=== PATIENT | male | born 1935 | race Caucasian/White ===

== ENCOUNTER 2018-07-12 12:14 | Inpatient (IN) | payer OTHER, BC ==
[2018-07-12 12:24] VITALS: BMI 23.6
--- NOTE | 2018-07-12 15:16 | PDOC ---
History of Present Illness - History of Present Illness Initial Comments: 07/12/18 17:55 The patient is a 82 year old male with a significant past medical history of prostate CA s/p suprapubic catheter and dual chamber artificial urinary sphincter, HTN, DM who presents today complaining of 2 days of decreased UOP in his leg bag and irritation to the scrotum. Patient states he normally can fill up his leg bag a few times a day but recently there hasnt been as much urine and states it seems to be leaking out of his penis causing irritation and redness to his scrotum. He reports having pain to his genitals mostly when sitting or standing. The patient notes to have had chills yesterday but denies fever. Suprapubic catheter was placed by Dr. Guidry at . Patient tried to contact Dr. Guidry today but he was told he is away. HE called his PMD Dr. Christine who advised that he go to the ER. Denies abdominal pain or pressure, nausea, vomiting, diarrhea, cough, SOB, CP, back pain, focal weakness/numbness. Call placed to the ED at [place] for collateral from ED attending. HE reports that last month patient was diagnosed to have cellulitis of the scrotum and a scrotal abscess which was I&Dd by Dr. Guidry on 05/27. Patient had follow up CT scan on 06/03 which only showed cellulitis and no gas or deep collections. He was sent to rehab for IV Vancomycin/Ceftriaxone via PICC line. Urologist: Dr. Guidry ([phone]) PCP: Dr. Marks Patient's Son #: Bud <Rolf Peterson - Last Filed: 07/12/18 19:03> <Pat Roman - Last Filed: 07/12/18 23:02> <Betsy Robertson - Last Filed: 07/12/18 23:25> - General Chief Complaint: Urinary Catheter Problem Stated Complaint: URINE PROBLEM Time Seen by Provider: 07/12/18 14:48 Past History - Past Medical History COPD: No Diabetes: Yes HTN: Yes - Suicide/Smoking/Psychosocial Hx Smoking History: Never smoked <Rolf Peterson - Last Filed: 07/12/18 19:03> <Pat Roman - Last Filed: 07/12/18 23:02> <Betsy Robertson - Last Filed: 07/12/18 23:25> - Past Medical History Allergies/Adverse Reactions: Allergies Allergy/AdvReac Type Severity Reaction Status Date / Time No Known Allergies Allergy Verified 07/12/18 12:23 Review of Systems - Review of Systems Comments:: 07/12/18 18:00 GENERAL/CONSTITUTIONAL: (+) chills. No fever. No weakness. HEAD, EYES, EARS, NOSE AND THROAT: No change in vision. No ear pain or discharge. No sore throat. GASTROINTESTINAL: No nausea, vomiting, diarrhea or constipation. GENITOURINARY: (+) urinary hesitancy. (+) genital irritation and pain. No dysuria, frequency. CARDIOVASCULAR: No chest pain or shortness of breath. RESPIRATORY: No cough, wheezing, or hemoptysis. MUSCULOSKELETAL: No joint or muscle swelling or pain. No neck or back pain. SKIN: (+) genital irritation. No rash NEUROLOGIC: No headache, vertigo, loss of consciousness, or change in strength/ sensation. ENDOCRINE: No increased thirst. No abnormal weight change. HEMATOLOGIC/LYMPHATIC: No anemia, easy bleeding, or history of blood clots. ALLERGIC/IMMUNOLOGIC: No hives or skin allergy. <Rolf Peterson - Last Filed: 07/12/18 19:03> *Physical Exam - Vital Signs Last Vital Signs Temp Pulse Resp BP Pulse Ox 98 F 85 18 90/51 L 99 07/12/18 12:19 07/12/18 12:19 07/12/18 12:19 07/12/18 12:19 07/12/18 12:19 - Physical Exam Comments: 07/12/18 18:01 GENERAL: Awake, alert, and fully oriented, in no acute distress. Non toxic, pleasant. HEAD: No signs of trauma EYES: PERRLA, EOMI, sclera anicteric, conjunctiva clear ENT: Oropharynx clear without exudates. Moist mucosa NECK: Normal ROM, supple, no lymphadenopathy, JVD, or masses LUNGS: Breath sounds equal, clear to auscultation bilaterally. No wheezes, and no crackles HEART: Regular rate and rhythm, normal S1 and S2, no murmurs, rubs or gallops ABDOMEN: Soft, nontender, normoactive bowel sounds. No guarding, no rebound. No masses. Suprapubic catheter in place with no erythema or induration around site. : +dribbling of urine from the urethra. +diffuse scrotal edema, erythema and induration. No crepitance. Mild ttp diffusely. EXTREMITIES: Normal range of motion, no edema. No cords, erythema, or tenderness NEUROLOGICAL: Normal speech, cranial nerves intact, equal strength and sensation b/l. SKIN: As noted in exam. <Rolf Peterson - Last Filed: 07/12/18 19:03> - Vital Signs Last Vital Signs Temp Pulse Resp BP Pulse Ox 98 F 85 18 90/51 L 99 07/12/18 12:19 07/12/18 12:19 07/12/18 12:19 07/12/18 12:19 07/12/18 12:19 <Pat Roman - Last Filed: 07/12/18 23:02> - Vital Signs Last Vital Signs Temp Pulse Resp BP Pulse Ox 98 F 85 18 90/51 L 99 07/12/18 12:19 07/12/18 12:19 07/12/18 12:19 07/12/18 12:19 07/12/18 12:19 <Betsy Robertson - Last Filed: 07/12/18 23:25> Moderate Sedation - Procedure Monitoring Vital Signs: Procedure Monitoring Vital Signs Temperature 98 F 07/12/18 12:19 Pulse Rate 85 07/12/18 12:19 Respiratory Rate 18 07/12/18 12:19 Blood Pressure 90/51 L 07/12/18 12:19 O2 Sat by Pulse Oximetry (%) 99 07/12/18 12:19 <Rolf Peterson - Last Filed: 07/12/18 19:03> - Procedure Monitoring Vital Signs: Procedure Monitoring Vital Signs Temperature 98 F 07/12/18 12:19 Pulse Rate 85 07/12/18 12:19 Respiratory Rate 18 07/12/18 12:19 Blood Pressure 90/51 L 07/12/18 12:19 O2 Sat by Pulse Oximetry (%) 99 07/12/18 12:19 <Pat Roman - Last Filed: 07/12/18 23:02> - Procedure Monitoring Vital Signs: Procedure Monitoring Vital Signs Temperature 98 F 07/12/18 12:19 Pulse Rate 85 07/12/18 12:19 Respiratory Rate 18 07/12/18 12:19 Blood Pressure 90/51 L 07/12/18 12:19 O2 Sat by Pulse Oximetry (%) 99 07/12/18 12:19 <Betsy Robertson - Last Filed: 07/12/18 23:25> ED Treatment Course - LABORATORY CBC & Chemistry Diagram: 07/12/18 16:00 07/12/18 16:00 <Rolf Peterson - Last Filed: 07/12/18 19:03> - LABORATORY CBC & Chemistry Diagram: 07/12/18 16:00 07/12/18 16:00 - ADDITIONAL ORDERS Additional order review: Laboratory Results 07/12/18 16:12 Urine Color Yellow Urine Appearance Slcloudy Urine pH 6.0 Ur Specific [place] 1.020 Urine Protein 2+ H Urine Glucose (UA) Negative Urine Ketones Negative Urine Blood 2+ H Urine Nitrite Negative Urine Bilirubin Negative Urine Urobilinogen Negative Ur Leukocyte Esterase 2+ H Urine WBC (Auto) 147 Urine RBC (Auto) 19 Urine Bacteria Few Urine Mucus Rare 07/12/18 16:00 RBC 4.00 MCV 81.2 MCHC 33.1 RDW 18.2 H MPV 9.0 Neutrophils % 27.1 L Lymphocytes % 64.8 H Monocytes % 7.4 Eosinophils % 0.3 Basophils % 0.4 <Pat Roman - Last Filed: 07/12/18 23:02> - LABORATORY CBC & Chemistry Diagram: 07/12/18 16:00 07/12/18 16:00 - ADDITIONAL ORDERS Additional order review: Laboratory Results 07/12/18 07/12/18 16:12 16:00 Sodium 140 Potassium 3.7 Chloride 102 Carbon Dioxide 30 Anion Gap 8 BUN 32 H Creatinine 1.4 H Creat Clearance w eGFR 48.64 Random Glucose 72 L Calcium 8.6 Total Bilirubin 0.8 AST 18 ALT 14 Alkaline Phosphatase 78 Total Protein 7.3 Albumin 3.3 L Urine Color Yellow Urine Appearance Slcloudy Urine pH 6.0 Ur Specific [place] 1.020 Urine Protein 2+ H Urine Glucose (UA) Negative Urine Ketones Negative Urine Blood 2+ H Urine Nitrite Negative Urine Bilirubin Negative Urine Urobilinogen Negative Ur Leukocyte Esterase 2+ H Urine WBC (Auto) 147 Urine RBC (Auto) 19 Urine Bacteria Few Urine Mucus Rare 07/12/18 16:00 RBC 4.00 MCV 81.2 MCHC 33.1 RDW 18.2 H MPV 9.0 Neutrophils % 27.1 L Lymphocytes % 64.8 H Monocytes % 7.4 Eosinophils % 0.3 Basophils % 0.4 - Medications Given in the ED: ED Medications Discontinued Medications Generic Name Dose Route Start Last Admin Trade Name Mey PRN Reason Stop Dose Admin Ceftriaxone Sodium 1,000 mg/ 50 mls @ 100 mls/hr 07/12/18 17:25 07/12/18 17: 35 Dextrose IVPB 07/12/18 17:54 100 mls/hr ONCE ONE Administration Sodium Chloride 1,000 mls @ 1,000 mls/hr 07/12/18 17:33 07/12/18 17:34 Normal Saline - IV 07/12/18 18:32 1,000 mls/hr ASDIR STA Administration <Betsy Robertson - Last Filed: 07/12/18 23:25> Medical Decision Making - Medical Decision Making 07/12/18 18:04 82yo M with complicated urologic hx including prostate ca, suprapubic cath, dual chamber artifical urinary sphincter and recent scrotal cellulitis and abscess requiring I&D and IV ceftriaxone and vancomycin presents to the ED with increasing redness and irritation to scrotum and decreased output through suprapubic catheter. COncern for recurrent scrotal cellulitis. No malodor, crepitance, significant tenderness, fevers, or toxic appearing pt to suggest jose's gangrene but will obtain CTAP to r/o. UA +for UTI but pt is likely chronically colonized. Pt covered with Vanc/ceftrixone empirically. With regards to decreased suprapubic cath output, bedside sono shows about 200cc 's of urine in bladder, not consistent with retention. Plan to consult urology to discuss penile leakage 07/12/18 18:27 No white count creatinine 1.4, will get CTAP with IV contrast at this point. Given studies that show iv contrast is not associated with nephropathy, will proceed with IV contrast. 07/12/18 19:[address] Watts, has no further recommendations, states the penile leakage is not concerning. Pt is at CTAP He is s/p vanc/ceftriaxone. Plan will be pending CTAP, if positive for jose's, urology will need to be consulted again. If negative, pt will need IV abx for scrotal cellulitis and admission. Case signed out to Dr. Robertson for f/u on pending diagnostics, further mgmt and dispo <Rolf Peterson - Last Filed: 07/12/18 19:03> - Medical Decision Making 07/12/18 17:07 Phone call placed to ER. Spoke to attending regarding patient 07/12/18 18:37 Phone call placed to Dr. Chavez, information services tech urologist. Physician returned call promptly and case was discussed. 07/12/18 22:30 Phone call placed to Dr. Marks for admission. Awaiting call back. 07/12/18 22:[address] Marks and case was discussed. <Pat Roman - Last Filed: 07/12/18 23:02> - Medical Decision Making 07/12/18 20:51 Patient Name: SADAF ARCE THIS IS A PRELIMINARY REPORT FROM [facility] DATE OF SERVICE: 2018-07-12 18:58:20 IMAGES: [id number] EXAM: CT abdomen and pelvis with IV contrast. Clinical indication: Scrotal pain. There are no prior studies available for comparison. Technique: Axial IV contrast-enhanced CT images of the abdomen and pelvis were obtained followed by coronal and sagittal reformats. Findings: There is a small hiatal hernia. There are age-related coronary artery calcifications. There is some minimal dependent bilateral lower lobe areas of atelectasis. The remainder the visualized portions of the lower thorax are within normal limits. There is no free intra-abdominal gas or fluid. There is been a prior cholecystectomy. The liver, adrenals, and pancreas are normal. The spleen is enlarged measuring 13.7 x 7.6 in meters in axial dimension and extending 15.7 cm in craniocaudal dimension. Within the superior aspect of the right kidney there is a complex heterogeneously enhancing mass which measures 6.3 x 6.0 x 5.0 cm in diameter consistent with a renal cell carcinoma. There is no evidence of renal vein invasion. There are no adjacent enlarged lymph nodes. There is a small right-sided simple renal cortical cyst. There multiple small left-sided simple renal cortical cyst. There is no hydronephrosis or renal calculi bilaterally. There are no enlarged abdominal or pelvic lymph nodes, by size criteria. There is a mildly prominent retroperitoneal lymph node anterior to the abdominal aorta measuring 0.8 cm in short axis dimension, best appreciated on axial image 60. There is a prominent left inguinal lymph node measuring 1.2 cm in short axis dimension. There are multiple seed implants within the region of the prostate. There is a suprapubic Neff catheter. There also appears to be a right inguinal pump for a penile implant which is only poorly visualized. The appendix is normal. The remainder of the bowel is unremarkable. There is some mild bilateral posterior arthritis. There are some lower lumbar degenerative disc and facet disease. There is no CT evidence of bony metastatic disease. Impression: 1. 6.3 cm right renal mass consistent with a renal cell carcinoma. 2. Penile implant which is poorly visualized. 3. Single enlarged left inguinal lymph node with mildly prominent single retroperitoneal lymph node. 4. Small hiatal hernia 07/12/18 23:24 Dr. Marks is aware of the patient and will admit him to [facility]. <Betsy Robertson - Last Filed: 07/12/18 23:25> *DC/Admit/Observation/Transfer <Rolf Peterson - Last Filed: 07/12/18 19:03> - Attestations Scribe Attestion: 07/12/18 17:08 Documentation prepared by Pat Roman, acting as medical device sales representative for Rolf Peterson MD. <Pat Roman - Last Filed: 07/12/18 23:02> - Discharge Dispostion Decision to Admit order: Yes <Betsy Robertson - Last Filed: 07/12/18 23:25> Diagnosis at time of Disposition: Cellulitis of scrotum, UTI (urinary tract infection) - Discharge Dispostion Condition at time of disposition: Guarded
[2018-07-12 16:50] LABS: URINE APPEARANCE SLCLOUDY; URINE BILIRUBIN NEGATIVE (<2.0 mg/dL); URINE COLOR YELLOW; URINE GLUCOSE (UA) NEGATIVE (NEGATIVE); URINE KETONE NEGATIVE (NEGATIVE); URINE LEUK ESTERASE 2+ (NEGATIVE); URINE NITRITE NEGATIVE (NEGATIVE); URINE PROTEIN 2+ (NEGATIVE); URINE UROBILINOGEN NEGATIVE mg/dL (0.2-1.0)
[2018-07-12 16:54] LABS: URINE BACTERIA FEW /hpf (NONE SEEN); URINE MUCUS RARE
[2018-07-12 17:00] LABS: BASO % 0.4 % (0-2.0); EOS % 0.3 % (0-4.5); HEMATOCRIT 32.5 % (35.4-49); HEMOGLOBIN 10.7 GM/dL (11.7-16.9); LYMPH % 64.8 % (8-40); MCH 26.9 pg (25.7-33.7); MCHC 33.1 g/dl (32.0-35.9); MEAN CELL VOLUME 81.2 fl (80-96); MONO % 7.4 % (3.8-10.2); NEUT % 27.1 % (42.8-82.8); PLATELET COUNT 93 K/MM3 (134-434); RDW 18.2 % (11.9-15.9)
[2018-07-12 17:21] LABS: ALBUMIN 3.3 g/dl (3.4-5.0); ALK PHOS 78 U/L (45-117); ANION GAP 8 MMOL/L (8-16); BILIRUBIN,TOTAL 0.8 mg/dL (0.2-1); BLOOD UREA NITROGEN 32 mg/dL (7-18); CALCIUM 8.6 mg/dL (8.5-10.1); CHLORIDE 102 mmol/L (98-107); CO2 30 mmol/L (21-32); CREATININE 1.4 mg/dL (0.55-1.3); GLUCOSE,RANDOM 72 mg/dL (74-106); POTASSIUM 3.7 mmol/L (3.5-5.1); SGOT/AST 18 U/L (15-37); SGPT/ALT 14 U/L (13-61); SODIUM 140 mmol/L (136-145); TOT PROT 7.3 g/dl (6.4-8.2)
[2018-07-12] MEDS ORDERED: VANCOMYCIN 1,000 MG in DEXTROSE 5%-WATER - 250 ML IVPB ONE (17:24)
[2018-07-12] MEDS ORDERED: CEFTRIAXONE 1,000 MG in DEXTROSE 5%-WATER - 50 ML IVPB ONE (17:25)
[2018-07-12] MEDS ORDERED: SODIUM CHLORIDE 1,000 ML IV STA (17:33)
[2018-07-12] MEDS ORDERED: CEFTRIAXONE 1 GM/50 ML BAG ONE (17:36)
[2018-07-12] MEDS ORDERED: VANCOMYCIN 1 GRAM (PRE-DOCKED) 1,000 MG/250 ML BAG IVPB ONE ×2 (17:36→18:33)
[2018-07-12 18:05] LABS: PLATELET ESTIMATE DECREASED
[2018-07-13] MEDS ORDERED: SODIUM CHLORIDE 0.45% 1,000 ML IV SCH (00:15)
[2018-07-13 08:02] LABS: HEMATOCRIT 29.4 % (35.4-49); HEMOGLOBIN 9.8 GM/dL (11.7-16.9); MCH 27.1 pg (25.7-33.7); MCHC 33.3 g/dl (32.0-35.9); MEAN CELL VOLUME 81.4 fl (80-96); MEAN PLT VOLUME 8.7 fl (7.5-11.1); PLATELET COUNT 68 K/MM3 (134-434); RBC 3.61 M/mm3 (4.00-5.60); RDW 17.9 % (11.9-15.9); WHITE BLOOD COUNT 5.9 K/mm3 (4.0-10.0)
[2018-07-13 08:45] LABS: ANION GAP 6 MMOL/L (8-16); BLOOD UREA NITROGEN 24 mg/dL (7-18); CHLORIDE 103 mmol/L (98-107); CO2 31 mmol/L (21-32); CREATININE 1.2 mg/dL (0.55-1.3); GLUCOSE,RANDOM 102 mg/dL (74-106); POTASSIUM 3.4 mmol/L (3.5-5.1); SODIUM 140 mmol/L (136-145)
[2018-07-13 09:31] LABS: ERYTHROCYTE SEDIMENTATION RATE 46 mm/hr (0-20)
[2018-07-13] MEDS ORDERED: CEFTRIAXONE 1 GM/50 ML BAG ONE (09:34)
[2018-07-13] MEDS: OXYBUTYNIN CHLORIDE 5 MG TABLET PO SCH ×2 (09:43→22:40)
[2018-07-13] MEDS: CEFTRIAXONE 1 GM in DEXTROSE 5%-WATER - 50 ML IVPB SCH (09:43)
[2018-07-13] MEDS ORDERED: POTASSIUM CHLORIDE TABS 10 MEQ TABLET.ER (FP) PO ONE (09:59)
--- NOTE | 2018-07-13 14:32 | HP ---
Admitting History and Physical - Primary Care Physician PCP: Rogelio Marks - Admission Chief Complaint: urinary leakage History of Present Illness: 82 year old male with CCLL, DM; ASHD who was recently hospitalized at [facility] ( released several weeks ago into SNF; then sent home) for scrotal abscess. Prior to admission, he'd been having progressive swelling of the scrotum and did not relay this to anyone until it became painful. He was taken to [facility] where it was revealed that his urethral sphincter valve (that he had for many years--placed for incontinence following tx of prostate cancer over 10 yrs ago) was infected and malfunctioning. He had incision & drainage and placed on IV Abs which continued post discharge and were stopped once he left the SNF ([facility]) about 2 weeks ago. Since then, he'd been off all Abs. All he was doing is dressing changes daily over the scrotal incision site. He had c/o of 2 days of decreased UOP in his leg bag and irritation to the scrotum. Patient states he normally can fill up his leg bag a few times a day but recently there hasnt been as much urine and states it seems to be leaking out of his penis causing irritation and redness to his scrotum. He reports having pain to his genitals mostly when sitting or standing. The patient notes to have had chills yesterday but denies fever. Suprapubic catheter was placed by Dr. Guidry at [facility]. Patient tried to contact Dr. Guidry but he was told he is away. he denied any abd pains, n-v, visible blood in urine or drainage. - Smoking History Smoking history: Never smoked Home Medications - Allergies Allergies/Adverse Reactions: Allergies Allergy/AdvReac Type Severity Reaction Status Date / Time No Known Allergies Allergy Verified 07/12/18 12:23 - Home Medications Home Medications (free text): asa 81mg Qd. metoprolol succ 25mg QD. Preserv vision BID. Lamotrigine 100mg BID. Oxybutinin 10mg Qd XR. Loasartan Hctz 100/ 25 Qd. Simvastatin 20mg Qd. Isradipine 5mg Qd Family Disease History - Family Disease History Family History: Unremarkable Review of Systems - Review of Systems Constitutional: reports: Chills Eyes: reports: No Symptoms HENT: reports: No Symptoms Neck: reports: No Symptoms Cardiovascular: reports: No Symptoms Respiratory: reports: No Symptoms Gastrointestinal: reports: No Symptoms Genitourinary: reports: Burning (scrotal skin), Incontinence (not new), Testicular Swelling (not new), Other (drainage from scrotal incision site) Musculoskeletal: reports: No Symptoms Integumentary: reports: Erythema (scrotal skin) Neurological: reports: No Symptoms Endocrine: reports: No Symptoms Hematology/Lymphatic: reports: No Symptoms Psychiatric: reports: No Symptoms Physical Examination Vital Signs: Vital Signs Temperature 97.9 F 07/13/18 07:02 Pulse Rate 54 L 07/13/18 07:02 Respiratory Rate 18 07/13/18 09:00 Blood Pressure 143/81 07/13/18 07:02 O2 Sat by Pulse Oximetry (%) 98 07/13/18 09:00 Findings/Remarks: skin--hyperemic skin of scrotum head--NC eyes--eomi; anicteric oral--no mucosal lesions appreciated neck--no masses, nodes or goiter lungs--grossly clear, unlabored breaths heart--RR slow abd--benign; with SP catheter leading into a collection bag --scrotal redness, and midline incision; skin moist ext--no edema; no ischemic changes neuro--alert; coherent lucid; non ill or toxic looking; no focal neuro deficits CBCD WBC 5.9 K/mm3 (4.0-10.0) 07/13/18 07:50 RBC 3.61 M/mm3 (4.00-5.60) L 07/13/18 07:50 Hgb 9.8 GM/dL (11.7-16.9) L 07/13/18 07:50 Hct 29.4 % (35.4-49) L 07/13/18 07:50 MCV 81.4 fl (80-96) 07/13/18 07:50 MCHC 33.3 g/dl (32.0-35.9) 07/13/18 07:50 RDW 17.9 % (11.9-15.9) H 07/13/18 07:50 Plt Count 68 K/MM3 (134-434) L D 07/13/18 07:50 MPV 8.7 fl (7.5-11.1) 07/13/18 07:50 CMP Sodium 140 mmol/L (136-145) 07/13/18 07:50 Potassium 3.4 mmol/L (3.5-5.1) L 07/13/18 07:50 Chloride 103 mmol/L (98-107) 07/13/18 07:50 Carbon Dioxide 31 mmol/L (21-32) 07/13/18 07:50 Anion Gap 6 MMOL/L (8-16) L 07/13/18 07:50 BUN 24 mg/dL (7-18) H 07/13/18 07:50 Creatinine 1.2 mg/dL (0.55-1.3) 07/13/18 07:50 Creat Clearance w eGFR 58.11 (>60) 07/13/18 07:50 Random Glucose 102 mg/dL (74-106) 07/13/18 07:50 Calcium 8.0 mg/dL (8.5-10.1) L 07/13/18 07:50 Total Bilirubin 0.8 mg/dL (0.2-1) 07/12/18 16:00 AST 18 U/L (15-37) 07/12/18 16:00 ALT 14 U/L (13-61) 07/12/18 16:00 Alkaline Phosphatase 78 U/L (45-117) 07/12/18 16:00 Total Protein 7.3 g/dl (6.4-8.2) 07/12/18 16:00 Albumin 3.3 g/dl (3.4-5.0) L 07/12/18 16:00 Labs: CBC, BMP 07/13/18 07:50 07/13/18 07:50 Imaging - Results Cat Scan: Report Reviewed (indicates the presence of suspicious Rt renal mass ( see report)) Problem List - Problems (1) Urinary catheter dysfunction Assessment/Plan: reports disrupted urine drainage into the collection bag which could be 2nd to leakage from the penis or the scrotal incision site. CT scan did not reveal finding cosnsistent with obstruction/hydronephrosis, and today there seems to be free flow of urine into the colecting bag as before. The urine shows the presence of esterase in the UA and was Given IV Abs; culture taken prior to receiving Abs Code(s): T83.018A - BREAKDOWN (MECHANICAL) OF OTHER URINARY CATHETER, INIT Qualifiers: Encounter type: initial encounter Qualified Code(s): T83.018A - Breakdown ( mechanical) of other urinary catheter, initial encounter (2) Cellulitis of scrotum Assessment/Plan: Completed Abs Tx; unsure if he may need further studies. Will hope to refer him back to his urologist in [place] Code(s): N49.2 - INFLAMMATORY DISORDERS OF SCROTUM (3) Neoplasm of uncertain behavior of kidney Assessment/Plan: described on the abd CT he had done here. He has no GI SX. Unsure if his Urologist has any knowledge of this Code(s): D41.00 - NEOPLASM OF UNCERTAIN BEHAVIOR OF UNSPECIFIED KIDNEY Qualifiers: Laterality: right Qualified Code(s): D41.01 - Neoplasm of uncertain behavior of right kidney (4) Hypertension with heart disease Assessment/Plan: has established CAD and is under Cardiac care; though he has been stable for very many yrs on ARB, CCB, BB, ASA, statins Code(s): I11.9 - HYPERTENSIVE HEART DISEASE WITHOUT HEART FAILURE (5) Type 2 diabetes mellitus Assessment/Plan: A1c has largely been under 7.0 on current agent Code(s): E11.9 - TYPE 2 DIABETES MELLITUS WITHOUT COMPLICATIONS Qualifiers: Diabetes mellitus complication detail: with other circulatory complications (6) Lipidemia Assessment/Plan: controlled with statin Code(s): E78.5 - HYPERLIPIDEMIA, UNSPECIFIED (7) CVA, old, ataxia Assessment/Plan: old ischemic stroke with some ataxia and gait dysfunction; with possible seizure complications controlled with anti-convulsant Code(s): I69.993 - ATAXIA FOLLOWING UNSPECIFIED CEREBROVASCULAR DISEASE (8) Seizure as late effect of cerebrovascular accident (CVA) Assessment/Plan: has been seizure free for many years Code(s): I69.398 - OTHER SEQUELAE OF CEREBRAL INFARCTION; R56.9 - UNSPECIFIED CONVULSIONS (9) Macular degeneration Code(s): H35.30 - UNSPECIFIED MACULAR DEGENERATION Qualifiers: Eye laterality: unspecified (10) CLL (chronic lymphocytic leukemia) Assessment/Plan: over 20 yrs; with mild anemia and thrombocytopenia Code(s): C91.90 - LYMPHOID LEUKEMIA, UNSPECIFIED NOT HAVING ACHIEVED REMISSION (11) Thrombocytopenia Assessment/Plan: stable; 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 ~~~~~~~~~~~~~~~~~~~~~~~~~~~~~~~~~~~~~ Dr Marks
--- NOTE | 2018-07-13 17:25 | CON.GU ---
Consult Consult Specialty:: urology Referred by:: Kendrick Reason for Consultation:: scrotal abscess with suprapubic tube - History of Present Illness Chief Complaint: scrotal abscess History of Present Illness: patient is a 82 year old male with history of CAP s/p radiation and seeds. Patient is s/p urinary sphincter which is non functioning and is maintain with suprapubic tube. Patient is s/p iv antibiotic tx for scrotal abscess. Patient is afebrile and feels well. - History Source History Provided By: Patient - Alcohol/Substance Use Hx Alcohol Use: No - Smoking History Smoking history: Never smoked Have you smoked in the past 12 months: No Home Medications - Allergies Allergies/Adverse Reactions: Allergies Allergy/AdvReac Type Severity Reaction Status Date / Time No Known Allergies Allergy Verified 07/12/18 12:23 Physical Exam- Vital Signs: Vital Signs Temperature 98 F 07/13/18 16:20 Pulse Rate 71 07/13/18 16:20 Respiratory Rate 20 07/13/18 16:20 Blood Pressure 127/74 07/13/18 16:20 O2 Sat by Pulse Oximetry (%) 97 07/13/18 15:11 Constitutional: Yes: Well Nourished, No Distress Eyes: Yes: WNL, Conjunctiva Clear, EOM Intact HENT: Yes: WNL, Atraumatic, Normocephalic Neck: Yes: WNL, Supple, Trachea Midline Cardiovascular: Yes: WNL Respiratory: Yes: WNL Gastrointestinal: Yes: WNL Renal/: Yes: WNL Kidneys: Yes: WNL Pelvis: Yes: WNL Testicles: Yes: WNL, Other Scrotum: Yes: Other (erythema of right hemiscrotum without fluctuance) Labs: CBC, BMP 07/13/18 07:50 07/13/18 07:50 Assessment/Plan imp uti scrotal abscess cap non-functioning artificial sphincter plan the urine of the patient from the suprapubic tube will always be contaminated. As soon as cultures return he should be switched to PO antibiotics and sent to his primary urologist for evaluation.
[2018-07-13] MEDS ORDERED: PT OWN MED DRAWER 7, Y5N ONE (22:10)
[2018-07-13] MEDS: ATORVASTATIN CA 10 MG TABLET (FP) PO SCH (22:40)
[2018-07-13] MEDS: lamoTRIgine 25 MG TABLET PO SCH (22:40)
[2018-07-14 07:47] LABS: HEMATOCRIT 30.4 % (35.4-49); HEMOGLOBIN 9.7 GM/dL (11.7-16.9); MCH 26.4 pg (25.7-33.7); MEAN CELL VOLUME 82.4 fl (80-96); MEAN PLT VOLUME 9.8 fl (7.5-11.1); PLATELET COUNT 67 K/MM3 (134-434); RBC 3.69 M/mm3 (4.00-5.60); RDW 17.8 % (11.9-15.9); WHITE BLOOD COUNT 5.7 K/mm3 (4.0-10.0)
[2018-07-14 08:04] LABS: ANION GAP 8 MMOL/L (8-16); BLOOD UREA NITROGEN 16 mg/dL (7-18); CALCIUM 8.7 mg/dL (8.5-10.1); CHLORIDE 103 mmol/L (98-107); CO2 29 mmol/L (21-32); GLUCOSE,RANDOM 111 mg/dL (74-106); POTASSIUM 3.5 mmol/L (3.5-5.1); SODIUM 141 mmol/L (136-145)
[2018-07-14] MEDS ORDERED: cefTRIAXone SODIUM 1 GM VIAL ONE (09:42)
[2018-07-14] MEDS ORDERED: DEXTROSE 5%-WATER - 50 ML IVPB ONE (09:42)
[2018-07-14] MEDS ORDERED: PT OWN MED DRAWER 7, Y5N ONE ×3 (09:42→20:46)
[2018-07-14] MEDS: ASPIRIN COATED 81 MG TABLET.EC PO SCH (09:45)
[2018-07-14] MEDS: OXYBUTYNIN CHLORIDE 5 MG TABLET PO SCH ×2 (09:45→21:01)
[2018-07-14] MEDS: metoPROLOL SUCCINATE 25 MG TAB.SR.24H (FP) PO SCH (09:45)
[2018-07-14] MEDS: CEFTRIAXONE 1 GM in DEXTROSE 5%-WATER - 50 ML IVPB SCH (09:46)
[2018-07-14] MEDS: lamoTRIgine 25 MG TABLET PO SCH ×2 (09:46→21:01)
[2018-07-14] MEDS ORDERED: LOSARTAN POTASSIUM 25 MG TABLET PO SCH (10:00)
--- NOTE | 2018-07-14 17:35 | PN ---
Progress Note (short form) - Note Progress Note: Current Medications Aspirin (Ecotrin -) 81 mg PO DAILY [facility] Last Admin: 07/14/18 09:45 Dose: 81 mg Atorvastatin Calcium (Lipitor -) 10 mg PO HS [facility] Last Admin: 07/13/18 22:40 Dose: 10 mg Ceftriaxone Sodium 1 gm/ (Dextrose) 50 mls @ 100 mls/hr IVPB DAILY [facility] Last Admin: 07/14/18 09:46 Dose: 100 mls/hr Lamotrigine (Lamictal -) 75 mg PO BID [facility] Last Admin: 07/14/18 09:46 Dose: 75 mg Losartan Potassium (Cozaar -) 25 mg PO DAILY [facility] Last Admin: 07/14/18 09:45 Dose: 25 mg Metoprolol Succinate (Toprol Xl -) 12.5 mg PO DAILY [facility] Last Admin: 07/14/18 09:45 Dose: 12.5 mg Oxybutynin Chloride (Ditropan -) 5 mg PO BID [facility] Last Admin: 07/14/18 09:45 Dose: 5 mg Laboratory Results - last 24 hr 07/14/18 07/14/18 07/14/18 06:02 07:00 07:00 WBC 5.7 RBC 3.69 L Hgb 9.7 L Hct 30.4 L MCV 82.4 MCH 26.4 MCHC 32.0 RDW 17.8 H Plt Count 67 L MPV 9.8 D Sodium 141 Potassium 3.5 Chloride 103 Carbon Dioxide 29 Anion Gap 8 BUN 16 Creatinine 1.0 Creat Clearance w eGFR > 60 POC Glucometer 131 Random Glucose 111 H Calcium 8.7 Vital Signs Temperature 98.2 F 07/14/18 14:54 Pulse Rate 67 07/14/18 14:54 Respiratory Rate 18 07/14/18 14:54 Blood Pressure 123/61 07/14/18 14:54 O2 Sat by Pulse Oximetry (%) 96 07/14/18 09:00 CC: skin discomfort; scrotum ````````````````````````````` skin--red scrotal skin lungs--clear heart--RR abd--benign ext--no edema neuro--alert; coherent, no focal deficits ``````````````````````````````````````` SUMM > Cystitis--possible Pseud A but not definite; await full report & sensitivities before adjusting his AB > Rt renal lesion--as described on CT; he is s/p RT kidney hematoma approx 10 yrs ago; though unclear if it fully resolved. On the D/c summary from [facility] a few weeks ago, it was noted that he had bilat renal cysts only. PLAN: will need f/u imaging but may need to f/u with his urologist as this is not an "acute" matter > scrotal cellulitis--was Tx'd with IV Vanco; artificial sphinctor not removed when he was hosp at [facility]; cont IV Roceph for now > Htn--w/ ASHD; cont cardiac meds; adjust as needed > DM--BS in low 100's and is not in need of any meds so far. 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 Code(s): D41.00 - NEOPLASM OF UNCERTAIN BEHAVIOR OF UNSPECIFIED KIDNEY Qualifiers: Laterality: right Qualified Code(s): D41.01 - Neoplasm of uncertain behavior of right kidney (4) Hypertension with heart disease Code(s): I11.9 - HYPERTENSIVE HEART DISEASE WITHOUT HEART FAILURE (5) Type 2 diabetes mellitus Code(s): E11.9 - TYPE 2 DIABETES MELLITUS WITHOUT COMPLICATIONS Qualifiers: Diabetes mellitus complication detail: with other circulatory complications (6) Lipidemia Code(s): E78.5 - HYPERLIPIDEMIA, UNSPECIFIED (7) CVA, old, ataxia Code(s): I69.993 - ATAXIA FOLLOWING UNSPECIFIED CEREBROVASCULAR DISEASE (8) Seizure as late effect of cerebrovascular accident (CVA) Code(s): I69.398 - OTHER SEQUELAE OF CEREBRAL INFARCTION; R56.9 - UNSPECIFIED CONVULSIONS (9) Macular degeneration Code(s): H35.30 - UNSPECIFIED MACULAR DEGENERATION Qualifiers: Eye laterality: unspecified (10) CLL (chronic lymphocytic leukemia) Code(s): C91.90 - LYMPHOID LEUKEMIA, UNSPECIFIED NOT HAVING ACHIEVED REMISSION (11) Thrombocytopenia Code(s): D69.6 - THROMBOCYTOPENIA, UNSPECIFIED
[2018-07-14] MEDS: ATORVASTATIN CA 10 MG TABLET (FP) PO SCH (21:01)
[2018-07-15] MEDS ORDERED: cefTRIAXone SODIUM 1 GM VIAL ONE (08:48)
[2018-07-15] MEDS ORDERED: DEXTROSE 5%-WATER - 50 ML IVPB ONE (08:48)
[2018-07-15] MEDS: LOSARTAN POTASSIUM 50 MG TABLET (FP) PO SCH (09:56)
[2018-07-15] MEDS: ASPIRIN COATED 81 MG TABLET.EC PO SCH (09:57)
[2018-07-15] MEDS: CEFTRIAXONE 1 GM in DEXTROSE 5%-WATER - 50 ML IVPB SCH (09:57)
[2018-07-15] MEDS: metoPROLOL SUCCINATE 25 MG TAB.SR.24H (FP) PO SCH (09:57)
[2018-07-15] MEDS: OXYBUTYNIN CHLORIDE 5 MG TABLET PO SCH ×2 (09:57→21:27)
[2018-07-15] MEDS: lamoTRIgine 25 MG TABLET PO SCH ×2 (12:27→21:27)
--- NOTE | 2018-07-15 17:02 | PN ---
Progress Note (short form) - Note Progress Note: Current Medications Aspirin (Ecotrin -) 81 mg PO DAILY [facility] Last Admin: 07/15/18 09:57 Dose: 81 mg Atorvastatin Calcium (Lipitor -) 10 mg PO HS [facility] Last Admin: 07/14/18 21:01 Dose: 10 mg Levofloxacin (Levaquin 500 Mg Premixed Ivpb -) 500 mg in 100 mls @ 100 mls/hr IVPB ONCE ONE; Protocol Stop: 07/15/18 17:53 Lamotrigine (Lamictal -) 75 mg PO BID [facility] Last Admin: 07/15/18 12:27 Dose: 75 mg Losartan Potassium (Cozaar -) 50 mg PO DAILY [facility] Last Admin: 07/15/18 09:56 Dose: 50 mg Metoprolol Succinate (Toprol Xl -) 12.5 mg PO DAILY [facility] Last Admin: 07/15/18 09:57 Dose: 12.5 mg Oxybutynin Chloride (Ditropan -) 5 mg PO BID [facility] Last Admin: 07/15/18 09:57 Dose: 5 mg Laboratory Results - last 24 hr 07/14/18 07/15/18 18:17 05:58 POC Glucometer 150 117 Vital Signs Temperature 97.2 F L 07/15/18 16:20 Pulse Rate 62 07/15/18 16:20 Respiratory Rate 18 07/15/18 16:20 Blood Pressure 129/67 07/15/18 16:20 O2 Sat by Pulse Oximetry (%) 96 07/14/18 09:00 CC: skin discomfort; scrotum ````````````````````````````` skin--red scrotal skin lungs--clear heart--RR abd--benign ext--no edema neuro--alert; coherent, no focal deficits; ambulatory ``````````````````````````````````````` SUMM > Cystitis--2 organisms identified; Pseudomas; PLAN; stop rocephin, change to levaquin x 1 dose; await ID eval > Rt renal lesion--as described on CT; he is s/p Right kidney hematoma approx 10 yrs ago; though unclear if it fully resolved. On the D/c summary from [facility] a few weeks ago, it was noted that he had bilat renal cysts only. PLAN: will need f/u imaging but may need to f/u with his urologist as this is not an "acute" matter > scrotal cellulitis--was previously Tx'd with IV Vanco; artificial sphinctor not removed when he was hosp at [facility] > Htn--w/ ASHD; cont cardiac meds; adjust as needed > DM--BS in low 100's and is not in need of any meds so far. 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 Code(s): D41.00 - NEOPLASM OF UNCERTAIN BEHAVIOR OF UNSPECIFIED KIDNEY Qualifiers: Laterality: right Qualified Code(s): D41.01 - Neoplasm of uncertain behavior of right kidney (4) Hypertension with heart disease Code(s): I11.9 - HYPERTENSIVE HEART DISEASE WITHOUT HEART FAILURE (5) Type 2 diabetes mellitus Code(s): E11.9 - TYPE 2 DIABETES MELLITUS WITHOUT COMPLICATIONS Qualifiers: Diabetes mellitus complication detail: with other circulatory complications (6) Lipidemia Code(s): E78.5 - HYPERLIPIDEMIA, UNSPECIFIED (7) CVA, old, ataxia Code(s): I69.993 - ATAXIA FOLLOWING UNSPECIFIED CEREBROVASCULAR DISEASE (8) Seizure as late effect of cerebrovascular accident (CVA) Code(s): I69.398 - OTHER SEQUELAE OF CEREBRAL INFARCTION; R56.9 - UNSPECIFIED CONVULSIONS (9) Macular degeneration Code(s): H35.30 - UNSPECIFIED MACULAR DEGENERATION Qualifiers: Eye laterality: unspecified (10) CLL (chronic lymphocytic leukemia) Code(s): C91.90 - LYMPHOID LEUKEMIA, UNSPECIFIED NOT HAVING ACHIEVED REMISSION (11) Thrombocytopenia Code(s): D69.6 - THROMBOCYTOPENIA, UNSPECIFIED
[2018-07-15] MEDS: ATORVASTATIN CA 10 MG TABLET (FP) PO SCH (21:26)
[2018-07-16 07:35] LABS: HEMATOCRIT 29.3 % (35.4-49); HEMOGLOBIN 9.7 GM/dL (11.7-16.9); MCH 26.9 pg (25.7-33.7); MEAN CELL VOLUME 81.5 fl (80-96); MEAN PLT VOLUME 9.8 fl (7.5-11.1); PLATELET COUNT 75 K/MM3 (134-434); RBC 3.59 M/mm3 (4.00-5.60); RDW 18.1 % (11.9-15.9); WHITE BLOOD COUNT 5.5 K/mm3 (4.0-10.0)
[2018-07-16 08:08] LABS: ANION GAP 8 MMOL/L (8-16); BLOOD UREA NITROGEN 21 mg/dL (7-18); CHLORIDE 103 mmol/L (98-107); CO2 27 mmol/L (21-32); GLUCOSE,RANDOM 108 mg/dL (74-106); POTASSIUM 3.6 mmol/L (3.5-5.1); SODIUM 138 mmol/L (136-145)
[2018-07-16] MEDS ORDERED: PT OWN MED DRAWER 7, Y5N ONE ×4 (09:15→20:53)
[2018-07-16] MEDS: OXYBUTYNIN CHLORIDE 5 MG TABLET PO SCH ×2 (10:16→21:12)
[2018-07-16] MEDS: ASPIRIN COATED 81 MG TABLET.EC PO SCH (10:16)
[2018-07-16] MEDS: metoPROLOL SUCCINATE 25 MG TAB.SR.24H (FP) PO SCH (10:16)
[2018-07-16] MEDS: LOSARTAN POTASSIUM 50 MG TABLET (FP) PO SCH (10:17)
[2018-07-16] MEDS: lamoTRIgine 25 MG TABLET PO SCH ×2 (10:17→21:12)
--- NOTE | 2018-07-16 12:20 | PN ---
Progress Note (short form) - Note Progress Note: ID Consult dictated Recurrent v. persistant scrotal cellulitis + Urine c/s ESBL S/P I&D scrotal abscess Obtain BC Scrotal US Substitute meropenem Contact precautions Call placed to Dr Tracey Guidry, patient's urologist
--- NOTE | 2018-07-16 12:36 | PN ---
Progress Note (short form) - Note Progress Note: Current Medications Aspirin (Ecotrin -) 81 mg PO DAILY [facility] Last Admin: 07/16/18 10:16 Dose: 81 mg Atorvastatin Calcium (Lipitor -) 10 mg PO HS [facility] Last Admin: 07/15/18 21:26 Dose: 10 mg Meropenem 1 gm/ Dextrose 100 mls @ 200 mls/hr IVPB Q8H-IV [facility] Lamotrigine (Lamictal -) 75 mg PO BID [facility] Last Admin: 07/16/18 10:17 Dose: 75 mg Losartan Potassium (Cozaar -) 50 mg PO DAILY [facility] Last Admin: 07/16/18 10:17 Dose: 50 mg Metoprolol Succinate (Toprol Xl -) 12.5 mg PO DAILY [facility] Last Admin: 07/16/18 10:16 Dose: 12.5 mg Oxybutynin Chloride (Ditropan -) 5 mg PO BID [facility] Last Admin: 07/16/18 10:16 Dose: 5 mg Laboratory Results - last 24 hr 07/15/18 07/16/18 07/16/18 17:50 06:05 07:00 WBC 5.5 RBC 3.59 L Hgb 9.7 L Hct 29.3 L MCV 81.5 MCH 26.9 MCHC 33.0 RDW 18.1 H Plt Count 75 L MPV 9.8 Sodium Potassium Chloride Carbon Dioxide Anion Gap BUN Creatinine Creat Clearance w eGFR POC Glucometer 159 129 Random Glucose Calcium 07/16/18 07:00 WBC RBC Hgb Hct MCV MCH MCHC RDW Plt Count MPV Sodium 138 Potassium 3.6 Chloride 103 Carbon Dioxide 27 Anion Gap 8 BUN 21 H Creatinine 1.0 Creat Clearance w eGFR > 60 POC Glucometer Random Glucose 108 H Calcium 8.0 L Vital Signs Temperature 98.2 F 07/16/18 07:00 Pulse Rate 56 L 07/16/18 07:00 Respiratory Rate 20 07/16/18 07:00 Blood Pressure 142/66 07/16/18 07:00 O2 Sat by Pulse Oximetry (%) 99 07/15/18 21:00 CC: skin discomfort; scrotum ````````````````````````````` skin--red scrotal skin lungs--clear heart--RR abd--benign; suprapubic site red ext--no edema neuro--alert; coherent, no focal deficits; ambulatory ``````````````````````````````````````` SUMM > Cystitis--2 organisms identified; Pseudomas & ESBL EColi; PLAN; start Meropenem as per dual sensitivities > Rt renal lesion--as described on CT; he is s/p Right kidney hematoma approx 10 yrs ago; though unclear if it fully resolved. On the D/c summary from [facility] a few weeks ago, it was noted that he had bilat renal cysts only. PLAN: will need f/u imaging but may need to f/u with his urologist as this is not an "acute" matter > scrotal cellulitis--US ordered > Htn--w/ ASHD; cont cardiac meds; adjust as needed > DM--BS in low 100's and is not in need of any meds so far. 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 Code(s): D41.00 - NEOPLASM OF UNCERTAIN BEHAVIOR OF UNSPECIFIED KIDNEY Qualifiers: Laterality: right Qualified Code(s): D41.01 - Neoplasm of uncertain behavior of right kidney (4) Hypertension with heart disease Code(s): I11.9 - HYPERTENSIVE HEART DISEASE WITHOUT HEART FAILURE (5) Type 2 diabetes mellitus Code(s): E11.9 - TYPE 2 DIABETES MELLITUS WITHOUT COMPLICATIONS Qualifiers: Diabetes mellitus complication detail: with other circulatory complications (6) Lipidemia Code(s): E78.5 - HYPERLIPIDEMIA, UNSPECIFIED (7) CVA, old, ataxia Code(s): I69.993 - ATAXIA FOLLOWING UNSPECIFIED CEREBROVASCULAR DISEASE (8) Seizure as late effect of cerebrovascular accident (CVA) Code(s): I69.398 - OTHER SEQUELAE OF CEREBRAL INFARCTION; R56.9 - UNSPECIFIED CONVULSIONS (9) Macular degeneration Code(s): H35.30 - UNSPECIFIED MACULAR DEGENERATION Qualifiers: Eye laterality: unspecified (10) CLL (chronic lymphocytic leukemia) Code(s): C91.90 - LYMPHOID LEUKEMIA, UNSPECIFIED NOT HAVING ACHIEVED REMISSION (11) Thrombocytopenia Code(s): D69.6 - THROMBOCYTOPENIA, UNSPECIFIED
--- NOTE | 2018-07-16 12:53 | CONS ---
DATE OF CONSULTATION: DATE OF DICTATION: 07/16/2018 The patient is an 82-year-old male with a complicated urological history who was evaluated for urinary tract infection. The patient has a history of prostate cancer status post radiation seed implantation. 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 The patient was hospitalized at [facility] in May of 2018 with scrotal cellulitis and abscess, and incision and drainage was performed on May 27, 2018. Complete details are not available; however, the patient apparently underwent drainage of a scrotal abscess and a PICC line was placed for him to receive IV antibiotic therapy. According to the patient, he was hospitalized for [address] [facility] and was [facility] to a jail facility for an additional 2 weeks of IV antibiotic therapy. He was discharged home. He was home for a short period of time before he developed worsening scrotal pain and irritation. He reports that he began to experience the scrotal pain when he stood up or sat down. He also reported that there was decreased urine output into the suprapubic drainage bag. As a result, he reports that there was some leakage of urine from the penile urethra, resulting in scrotal irritation. He experienced some chills; however, denied any fever. He presented to the hospital where he was admitted on July 12, 2018. A urine culture was obtained and is now positive for pseudomonas and ESBL. At the present time he is comfortable supine in bed; however, he experiences pain when he attempts to stand or sit upright. The PICC line was removed prior to his discharge from the jail facility. At [facility] a CAT scan was performed of the abdomen and pelvis and shows a heterogeneous enhancing mass within the upper pole of the right kidney suspicious for renal cell cancer. There was a percutaneous drainage catheter in the anterior lower pelvis consistent with his known suprapubic cystostomy tube, and it was unclear whether the distal portion of the tube was in the urinary bladder. At the present time he is awake and alert. He is comfortable at rest in bed. PAST MEDICAL HISTORY: Positive for prostate cancer status post seed implantation, hypertension, diabetes, CLL. PAST SURGICAL HISTORY: Status post urethral sphincter, history of suprapubic tube placement, status post incision and drainage of scrotal abscess in May 2018. ALLERGIES: No known allergies. MEDICATIONS: Medications at the present time include aspirin, Lipitor, Lamictal, metoprolol, oxybutynin. SOCIAL HISTORY: He resides at home, nonsmoker, nondrinker. REVIEW OF SYSTEMS: Neurologic: No loss of consciousness, seizure activity, focal weakness. Cardiac: Negative chest pain or palpitations. Respiratory: Negative cough or sputum production. Gastrointestinal: Negative vomiting or diarrhea. Genitourinary: As per HPI. LABORATORY DATA: White count 5.5, hematocrit 29.3, platelet count 75. BUN 20, creatinine 1.0. Urinalysis: Pseudomonas aeruginosa and ESBL. PHYSICAL EXAMINATION: General: He is awake and alert. Vital Signs: Temperature 98.2, blood pressure 142/66, pulse 56, regular. Respirations 20 per minute. HEENT: Sclerae are anicteric. Cardiovascular: Heart sounds S1, S2. Lungs: Clear. Abdomen: Soft. There is an indurated swelling present in the right inguinal area which is nontender. There is a suprapubic catheter in place. The scrotum appears erythematous along the right hemiscrotum extending to the left hemiscrotum. There is no fluctuance or crepitus. IMPRESSION: 1. Recurrent scrotal cellulitis. 2. Status post incision and drainage, scrotal abscess. 3. Positive urine culture for pseudomonas and extended-spectrum beta-lactamase. Obtain blood cultures, scrotal ultrasound. Advised meropenem for treatment of urine isolates. Call was placed to his urologist, Dr. Leroy Guidry, to further discuss the case and his clinical course while at [facility]. Contact precautions for ESBL. Thank you for the kind referral. LOIVIA LONGORIA M.D. [id number]
[2018-07-16] MEDS: MEROPENEM 1 GM in DEXTROSE 5%-WATER 100 ML IVPB SCH ×2 (15:33→18:06)
[2018-07-16] MEDS: ATORVASTATIN CA 10 MG TABLET (FP) PO SCH (21:12)
[2018-07-17] MEDS: MEROPENEM 1 GM in DEXTROSE 5%-WATER 100 ML IVPB SCH ×3 (01:41→17:14)
[2018-07-17] MEDS ORDERED: PT OWN MED DRAWER 7, Y5N ONE ×5 (05:08→21:24)
[2018-07-17 08:05] LABS: HEMOGLOBIN 10.1 GM/dL (11.7-16.9); MCH 28.4 pg (25.7-33.7); MCHC 34.9 g/dl (32.0-35.9); MEAN CELL VOLUME 81.4 fl (80-96); MEAN PLT VOLUME 9.4 fl (7.5-11.1); PLATELET COUNT 71 K/MM3 (134-434); RBC 3.57 M/mm3 (4.00-5.60); RDW 17.7 % (11.9-15.9); WHITE BLOOD COUNT 5.7 K/mm3 (4.0-10.0)
[2018-07-17 08:44] LABS: ALBUMIN 2.8 g/dl (3.4-5.0); ALK PHOS 67 U/L (45-117); ANION GAP 10 MMOL/L (8-16); BILIRUBIN,TOTAL 0.5 mg/dL (0.2-1); BLOOD UREA NITROGEN 20 mg/dL (7-18); CALCIUM 7.8 mg/dL (8.5-10.1); CHLORIDE 104 mmol/L (98-107); CO2 25 mmol/L (21-32); CREATININE 0.9 mg/dL (0.55-1.3); GLUCOSE,RANDOM 103 mg/dL (74-106); POTASSIUM 3.5 mmol/L (3.5-5.1); SGOT/AST 11 U/L (15-37); SGPT/ALT 10 U/L (13-61); SODIUM 139 mmol/L (136-145); TOT PROT 6.5 g/dl (6.4-8.2)
[2018-07-17] MEDS: metoPROLOL SUCCINATE 25 MG TAB.SR.24H (FP) PO SCH (09:04)
[2018-07-17] MEDS: ASPIRIN COATED 81 MG TABLET.EC PO SCH (09:04)
[2018-07-17] MEDS: OXYBUTYNIN CHLORIDE 5 MG TABLET PO SCH ×2 (09:04→21:55)
[2018-07-17] MEDS: lamoTRIgine 25 MG TABLET PO SCH ×2 (09:05→21:55)
[2018-07-17] MEDS: LOSARTAN POTASSIUM 50 MG TABLET (FP) PO SCH (09:05)
--- NOTE | 2018-07-17 16:50 | PN ---
Progress Note (short form) - Note Progress Note: Current Medications Aspirin (Ecotrin -) 81 mg PO DAILY [facility] Last Admin: 07/17/18 09:04 Dose: 81 mg Atorvastatin Calcium (Lipitor -) 10 mg PO HS [facility] Last Admin: 07/16/18 21:12 Dose: 10 mg Meropenem 1 gm/ Dextrose 100 mls @ 200 mls/hr IVPB Q8H-IV [facility] Last Admin: 07/17/18 09:04 Dose: 200 mls/hr Lamotrigine (Lamictal -) 75 mg PO BID [facility] Last Admin: 07/17/18 09:05 Dose: 75 mg Losartan Potassium (Cozaar -) 50 mg PO DAILY [facility] Last Admin: 07/17/18 09:05 Dose: 50 mg Metoprolol Succinate (Toprol Xl -) 12.5 mg PO DAILY [facility] Last Admin: 07/17/18 09:04 Dose: 12.5 mg Oxybutynin Chloride (Ditropan -) 5 mg PO BID [facility] Last Admin: 07/17/18 09:04 Dose: 5 mg Vital Signs Temperature 97.8 F 07/17/18 11:50 Pulse Rate 68 07/17/18 11:50 Respiratory Rate 20 07/17/18 11:50 Blood Pressure 130/70 07/17/18 11:50 O2 Sat by Pulse Oximetry (%) 99 07/17/18 09:00 Laboratory Results - last 24 hr 07/17/18 07/17/18 07/17/18 06:00 06:00 06:19 WBC 5.7 RBC 3.57 L Hgb 10.1 L Hct 29.0 L MCV 81.4 MCH 28.4 MCHC 34.9 RDW 17.7 H Plt Count 71 L MPV 9.4 Sodium 139 Potassium 3.5 Chloride 104 Carbon Dioxide 25 Anion Gap 10 BUN 20 H Creatinine 0.9 Creat Clearance w eGFR > 60 POC Glucometer 117 Random Glucose 103 Calcium 7.8 L Total Bilirubin 0.5 AST 11 L ALT 10 L Alkaline Phosphatase 67 Total Protein 6.5 Albumin 2.8 L CC: some scrotal discomfort ````````````````````````````` skin--Iv site clean lungs--clear heart--RR abd--benign; suprapubic catheter ext--no edema neuro--alert; coherent, no focal deficits; ambulatory ``````````````````````````````````````` SUMM > Cystitis--2 organisms identified; Pseudomas & ESBL EColi; PLAN; on Meropenem > Rt renal lesion--as described on CT; he is s/p Right kidney hematoma approx 10 yrs ago; though unclear if it fully resolved. On the D/c summary from [facility] a few weeks ago, it was noted that he had bilat renal cysts only. PLAN: have discussed this with urologist who had asked to see a copy of the report, as it may also represent a hemorrhagic cyst > scrotal cellulitis--discussed with his Urogist (Dr bairon Guidry) who advised that he f/u once course of Abs completed > Htn--w/ ASHD; cont cardiac meds; adjust as needed > DM--BS in low 100's and is not in need of any meds so far. > Low PLT--levels in "usual" range > hx seizures--? 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 Code(s): D41.00 - NEOPLASM OF UNCERTAIN BEHAVIOR OF UNSPECIFIED KIDNEY Qualifiers: Laterality: right Qualified Code(s): D41.01 - Neoplasm of uncertain behavior of right kidney (4) Hypertension with heart disease Code(s): I11.9 - HYPERTENSIVE HEART DISEASE WITHOUT HEART FAILURE (5) Type 2 diabetes mellitus Code(s): E11.9 - TYPE 2 DIABETES MELLITUS WITHOUT COMPLICATIONS Qualifiers: Diabetes mellitus complication detail: with other circulatory complications (6) Lipidemia Code(s): E78.5 - HYPERLIPIDEMIA, UNSPECIFIED (7) CVA, old, ataxia Code(s): I69.993 - ATAXIA FOLLOWING UNSPECIFIED CEREBROVASCULAR DISEASE (8) Seizure as late effect of cerebrovascular accident (CVA) Code(s): I69.398 - OTHER SEQUELAE OF CEREBRAL INFARCTION; R56.9 - UNSPECIFIED CONVULSIONS (9) Macular degeneration Code(s): H35.30 - UNSPECIFIED MACULAR DEGENERATION Qualifiers: Eye laterality: unspecified (10) CLL (chronic lymphocytic leukemia) Code(s): C91.90 - LYMPHOID LEUKEMIA, UNSPECIFIED NOT HAVING ACHIEVED REMISSION (11) Thrombocytopenia Code(s): D69.6 - THROMBOCYTOPENIA, UNSPECIFIED
[2018-07-17] MEDS: AMINO ACIDS/PROTEIN HYDROLYS 30 ML LIQUID.PKT PO SCH (17:14)
[2018-07-17] MEDS: ATORVASTATIN CA 10 MG TABLET (FP) PO SCH (21:55)
[2018-07-18] MEDS: MEROPENEM 1 GM in DEXTROSE 5%-WATER 100 ML IVPB SCH ×3 (02:17→17:20)
[2018-07-18] MEDS ORDERED: PT OWN MED DRAWER 7, Y5N ONE ×5 (02:59→21:45)
[2018-07-18 08:22] LABS: ANION GAP 9 MMOL/L (8-16); BLOOD UREA NITROGEN 23 mg/dL (7-18); CALCIUM 7.6 mg/dL (8.5-10.1); CHLORIDE 104 mmol/L (98-107); CO2 26 mmol/L (21-32); GLUCOSE,RANDOM 110 mg/dL (74-106); POTASSIUM 3.6 mmol/L (3.5-5.1); SODIUM 140 mmol/L (136-145)
[2018-07-18] MEDS: AMINO ACIDS/PROTEIN HYDROLYS 30 ML LIQUID.PKT PO SCH ×2 (08:36→17:19)
[2018-07-18] MEDS: OXYBUTYNIN CHLORIDE 5 MG TABLET PO SCH ×2 (10:56→21:46)
[2018-07-18] MEDS: ASPIRIN COATED 81 MG TABLET.EC PO SCH (10:56)
[2018-07-18] MEDS: LOSARTAN POTASSIUM 50 MG TABLET (FP) PO SCH (10:56)
[2018-07-18] MEDS: metoPROLOL SUCCINATE 25 MG TAB.SR.24H (FP) PO SCH (10:57)
[2018-07-18] MEDS: lamoTRIgine 25 MG TABLET PO SCH ×2 (11:09→21:46)
--- NOTE | 2018-07-18 12:06 | PN ---
Progress Note (short form) - Note Progress Note: Current Medications Amino Acids (Prosource No Carb Liquid Pkt) 30 ml PO BID@0800,1730 [facility] Last Admin: 07/18/18 08:36 Dose: 30 ml Aspirin (Ecotrin -) 81 mg PO DAILY [facility] Last Admin: 07/18/18 10:56 Dose: 81 mg Atorvastatin Calcium (Lipitor -) 10 mg PO HS [facility] Last Admin: 07/17/18 21:55 Dose: 10 mg Meropenem 1 gm/ Dextrose 100 mls @ 200 mls/hr IVPB Q8H-IV [facility] Last Admin: 07/18/18 10:56 Dose: 200 mls/hr Lamotrigine (Lamictal -) 75 mg PO BID [facility] Last Admin: 07/18/18 11:09 Dose: 75 mg Losartan Potassium (Cozaar -) 50 mg PO DAILY [facility] Last Admin: 07/18/18 10:56 Dose: 50 mg Metoprolol Succinate (Toprol Xl -) 12.5 mg PO DAILY [facility] Last Admin: 07/18/18 10:57 Dose: 12.5 mg Oxybutynin Chloride (Ditropan -) 5 mg PO BID [facility] Last Admin: 07/18/18 10:56 Dose: 5 mg Laboratory Results - last 24 hr 07/17/18 07/18/18 07/18/18 16:43 06:35 07:00 Sodium 140 Potassium 3.6 Chloride 104 Carbon Dioxide 26 Anion Gap 9 BUN 23 H Creatinine 1.0 Creat Clearance w eGFR > 60 POC Glucometer 200 137 Random Glucose 110 H Calcium 7.6 L Vital Signs Temperature 98.4 F 07/18/18 06:00 Pulse Rate 58 L 07/18/18 06:00 Respiratory Rate 20 07/18/18 06:00 Blood Pressure 139/75 07/18/18 06:00 O2 Sat by Pulse Oximetry (%) 99 07/17/18 09:00 CC: some scrotal discomfort ````````````````````````````` skin--Iv site clean; no rashes lungs--clear heart--RR abd--benign; suprapubic catheter ext--no edema --some scrotal redness; no gross drainage or tenderness to touch neuro--alert; coherent, no focal deficits; ambulatory ``````````````````````````````````````` SUMM > Cystitis--2 organisms identified; Pseudomas & ESBL EColi; PLAN; on Meropenem > Rt renal lesion--as described on CT; he is s/p Right kidney hematoma approx 10 yrs ago; though unclear if it fully resolved. On the D/c summary from [facility] a few weeks ago, it was noted that he had bilat renal cysts only. PLAN: have discussed this with urologist who had asked to see a copy of the report, as it may also represent a hemorrhagic cyst > scrotal cellulitis--seems less inflammed; case discussed with his Urogist (Dr bairon Guidry) who advised that he f/u once course of Abs completed > Htn--w/ ASHD; cont cardiac meds; adjust as needed > DM--BS mostly in low 100's and is not in need of any meds so far. 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 Code(s): D41.00 - NEOPLASM OF UNCERTAIN BEHAVIOR OF UNSPECIFIED KIDNEY Qualifiers: Laterality: right Qualified Code(s): D41.01 - Neoplasm of uncertain behavior of right kidney (4) Hypertension with heart disease Code(s): I11.9 - HYPERTENSIVE HEART DISEASE WITHOUT HEART FAILURE (5) Type 2 diabetes mellitus Code(s): E11.9 - TYPE 2 DIABETES MELLITUS WITHOUT COMPLICATIONS Qualifiers: Diabetes mellitus complication detail: with other circulatory complications (6) Lipidemia Code(s): E78.5 - HYPERLIPIDEMIA, UNSPECIFIED (7) CVA, old, ataxia Code(s): I69.993 - ATAXIA FOLLOWING UNSPECIFIED CEREBROVASCULAR DISEASE (8) Seizure as late effect of cerebrovascular accident (CVA) Code(s): I69.398 - OTHER SEQUELAE OF CEREBRAL INFARCTION; R56.9 - UNSPECIFIED CONVULSIONS (9) Macular degeneration Code(s): H35.30 - UNSPECIFIED MACULAR DEGENERATION Qualifiers: Eye laterality: unspecified (10) CLL (chronic lymphocytic leukemia) Code(s): C91.90 - LYMPHOID LEUKEMIA, UNSPECIFIED NOT HAVING ACHIEVED REMISSION (11) Thrombocytopenia Code(s): D69.6 - THROMBOCYTOPENIA, UNSPECIFIED
--- NOTE | 2018-07-18 12:32 | PN ---
Progress Note, Physician History of Present Illness: Feeling well No c/o scrotal pain suprapubic catheter in place draining concentrated urine Afebrile WBC WNL BC no growth - Current Medication List Current Medications: Active Medications Amino Acids (Prosource No Carb Liquid Pkt) 30 ml PO BID@0800,1730 [facility] Last Admin: 07/18/18 08:36 Dose: 30 ml Aspirin (Ecotrin -) 81 mg PO DAILY [facility] Last Admin: 07/18/18 10:56 Dose: 81 mg Atorvastatin Calcium (Lipitor -) 10 mg PO HS [facility] Last Admin: 07/17/18 21:55 Dose: 10 mg Meropenem 1 gm/ Dextrose 100 mls @ 200 mls/hr IVPB Q8H-IV [facility] Last Admin: 07/18/18 10:56 Dose: 200 mls/hr Lamotrigine (Lamictal -) 75 mg PO BID [facility] Last Admin: 07/18/18 11:09 Dose: 75 mg Losartan Potassium (Cozaar -) 50 mg PO DAILY [facility] Last Admin: 07/18/18 10:56 Dose: 50 mg Metoprolol Succinate (Toprol Xl -) 12.5 mg PO DAILY [facility] Last Admin: 07/18/18 10:57 Dose: 12.5 mg Oxybutynin Chloride (Ditropan -) 5 mg PO BID [facility] Last Admin: 07/18/18 10:56 Dose: 5 mg - Objective Vital Signs: Vital Signs Temperature 98.4 F 07/18/18 06:00 Pulse Rate 58 L 07/18/18 06:00 Respiratory Rate 20 07/18/18 06:00 Blood Pressure 139/75 07/18/18 06:00 O2 Sat by Pulse Oximetry (%) 99 07/17/18 09:00 Constitutional: Yes: No Distress Eyes: Yes: Conjunctiva Clear Cardiovascular: Yes: Regular Rate and Rhythm, S1, S2 Respiratory: Yes: CTA Bilaterally Gastrointestinal: Yes: Normal Bowel Sounds, Soft. No: Tenderness Genitourinary: Yes: Other (decreased scrotal erythema; healed incision; + suprapubic catheter) Labs: CBC, BMP 07/17/18 06:00 07/18/18 07:00 Assessment/Plan Scrotal cellulitis S/P I&D scrotal abscess + urine c/s Pseudomonas, ESBL Continue meropenem additional 48hr Contact precautions
[2018-07-18] MEDS: ATORVASTATIN CA 10 MG TABLET (FP) PO SCH (21:46)
[2018-07-19] MEDS ORDERED: PT OWN MED DRAWER 7, Y5N ONE ×4 (01:36→20:57)
[2018-07-19] MEDS: MEROPENEM 1 GM in DEXTROSE 5%-WATER 100 ML IVPB SCH ×3 (01:53→18:04)
[2018-07-19 07:14] LABS: HEMOGLOBIN 10.8 GM/dL (11.7-16.9); MCH 27.3 pg (25.7-33.7); MCHC 33.8 g/dl (32.0-35.9); MEAN CELL VOLUME 80.6 fl (80-96); MEAN PLT VOLUME 9.7 fl (7.5-11.1); PLATELET COUNT 88 K/MM3 (134-434); RBC 3.96 M/mm3 (4.00-5.60); RDW 17.8 % (11.9-15.9); WHITE BLOOD COUNT 8.6 K/mm3 (4.0-10.0)
[2018-07-19] MEDS: AMINO ACIDS/PROTEIN HYDROLYS 30 ML LIQUID.PKT PO SCH ×2 (07:31→18:04)
[2018-07-19 07:41] LABS: ALK PHOS 69 U/L (45-117); ANION GAP 8 MMOL/L (8-16); BILIRUBIN,TOTAL 0.6 mg/dL (0.2-1); BLOOD UREA NITROGEN 23 mg/dL (7-18); CALCIUM 7.9 mg/dL (8.5-10.1); CHLORIDE 100 mmol/L (98-107); CO2 29 mmol/L (21-32); CREATININE 1.1 mg/dL (0.55-1.3); GLUCOSE,RANDOM 143 mg/dL (74-106); SGOT/AST 13 U/L (15-37); SGPT/ALT 12 U/L (13-61); SODIUM 136 mmol/L (136-145)
[2018-07-19] MEDS ORDERED: ACETAMINOPHEN 325 MG TABLET (FP) PO PRN (08:59)
[2018-07-19 09:43] LABS: URINE APPEARANCE CLEAR; URINE BILIRUBIN NEGATIVE (<2.0 mg/dL); URINE COLOR STRAW; URINE GLUCOSE (UA) NEGATIVE (NEGATIVE); URINE KETONE NEGATIVE (NEGATIVE); URINE LEUK ESTERASE TRACE (NEGATIVE); URINE NITRITE NEGATIVE (NEGATIVE); URINE PROTEIN 1+ (NEGATIVE); URINE UROBILINOGEN NEGATIVE mg/dL (0.2-1.0)
[2018-07-19] MEDS: metoPROLOL SUCCINATE 25 MG TAB.SR.24H (FP) PO SCH (10:02)
[2018-07-19] MEDS: ASPIRIN COATED 81 MG TABLET.EC PO SCH (10:02)
[2018-07-19] MEDS: LOSARTAN POTASSIUM 50 MG TABLET (FP) PO SCH (10:02)
[2018-07-19] MEDS: OXYBUTYNIN CHLORIDE 5 MG TABLET PO SCH ×2 (10:03→22:12)
[2018-07-19] MEDS: lamoTRIgine 25 MG TABLET PO SCH ×2 (10:03→22:12)
--- NOTE | 2018-07-19 12:47 | PN ---
Progress Note (short form) - Note Progress Note: Current Medications Acetaminophen (Tylenol -) 650 mg PO Q6H PRN PRN Reason: FEVER Last Admin: 07/19/18 09:11 Dose: 650 mg Amino Acids (Prosource No Carb Liquid Pkt) 30 ml PO BID@0800,1730 [facility] Last Admin: 07/19/18 07:31 Dose: 30 ml Amlodipine Besylate (Norvasc -) 2.5 mg PO DAILY [facility] Aspirin (Ecotrin -) 81 mg PO DAILY [facility] Last Admin: 07/19/18 10:02 Dose: 81 mg Atorvastatin Calcium (Lipitor -) 10 mg PO HS [facility] Last Admin: 07/18/18 21:46 Dose: 10 mg Meropenem 1 gm/ Dextrose 100 mls @ 200 mls/hr IVPB Q8H-IV [facility] Last Admin: 07/19/18 10:03 Dose: 200 mls/hr Lamotrigine (Lamictal -) 75 mg PO BID [facility] Last Admin: 07/19/18 10:03 Dose: 75 mg Losartan Potassium (Cozaar -) 50 mg PO DAILY [facility] Last Admin: 07/19/18 10:02 Dose: 50 mg Metoprolol Succinate (Toprol Xl -) 12.5 mg PO DAILY [facility] Last Admin: 07/19/18 10:02 Dose: 12.5 mg Oxybutynin Chloride (Ditropan -) 5 mg PO BID [facility] Last Admin: 07/19/18 10:03 Dose: 5 mg Laboratory Results - last 24 hr 07/19/18 07/19/18 07/19/18 06:30 06:30 07:50 WBC 8.6 RBC 3.96 L Hgb 10.8 L Hct 32.0 L MCV 80.6 MCH 27.3 MCHC 33.8 RDW 17.8 H Plt Count 88 L D MPV 9.7 Sodium 136 Potassium 4.0 Chloride 100 Carbon Dioxide 29 Anion Gap 8 BUN 23 H Creatinine 1.1 Creat Clearance w eGFR > 60 Random Glucose 143 H Calcium 7.9 L Total Bilirubin 0.6 AST 13 L ALT 12 L Alkaline Phosphatase 69 Total Protein 7.0 Albumin 3.0 L Urine Color Straw Urine Appearance Clear Urine pH 6.0 Ur Specific Royal 1.013 Urine Protein 1+ H Urine Glucose (UA) Negative Urine Ketones Negative Urine Blood 1+ H Urine Nitrite Negative Urine Bilirubin Negative Urine Urobilinogen Negative Ur Leukocyte Esterase Trace Urine WBC (Auto) 38 Urine RBC (Auto) 6 Vital Signs Temperature 99.7 F H 07/19/18 06:00 Pulse Rate 86 07/19/18 06:00 Respiratory Rate 20 07/19/18 06:00 Blood Pressure 164/92 07/19/18 06:00 O2 Sat by Pulse Oximetry (%) 100 07/18/18 21:00 CC: sweaty ````````````````` skin--no rashes; IOV site not red eyes--non injected oral--no mucosal lesions lungs--grossly clear heart--RR abd--benign ext--no soft tissue tenderness ```````````````````````````````` CXR--NAP; UA trace estrerase `````````````````````````` Summ > Fever--spiked temp to near 101; but does not appear ill or toxic; denies diarrhea; abd pains, cough, sore throat, body aches PLAN: BC taken; cont all same Abs for now > Cystitis--2 organisms identified; Pseudomas & ESBL EColi; PLAN; on Meropenem > Rt renal lesion--as described on CT; he is s/p Right kidney hematoma approx 10 yrs ago; though unclear if it fully resolved. On the D/c summary from [facility] a few weeks ago, it was noted that he had bilat renal cysts only. PLAN: have discussed this with urologist who had asked to see a copy of the report, as it may also represent a hemorrhagic cyst > Htn--w/ ASHD; cont cardiac meds; add CCB due to high SBP > DM--BS mostly in low 100's and is not in need of any meds so far. 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 Code(s): D41.00 - NEOPLASM OF UNCERTAIN BEHAVIOR OF UNSPECIFIED KIDNEY Qualifiers: Laterality: right Qualified Code(s): D41.01 - Neoplasm of uncertain behavior of right kidney (4) Hypertension with heart disease Code(s): I11.9 - HYPERTENSIVE HEART DISEASE WITHOUT HEART FAILURE (5) Type 2 diabetes mellitus Code(s): E11.9 - TYPE 2 DIABETES MELLITUS WITHOUT COMPLICATIONS Qualifiers: Diabetes mellitus complication detail: with other circulatory complications (6) Lipidemia Code(s): E78.5 - HYPERLIPIDEMIA, UNSPECIFIED (7) CVA, old, ataxia Code(s): I69.993 - ATAXIA FOLLOWING UNSPECIFIED CEREBROVASCULAR DISEASE (8) Seizure as late effect of cerebrovascular accident (CVA) Code(s): I69.398 - OTHER SEQUELAE OF CEREBRAL INFARCTION; R56.9 - UNSPECIFIED CONVULSIONS (9) Macular degeneration Code(s): H35.30 - UNSPECIFIED MACULAR DEGENERATION Qualifiers: Eye laterality: unspecified (10) CLL (chronic lymphocytic leukemia) Code(s): C91.90 - LYMPHOID LEUKEMIA, UNSPECIFIED NOT HAVING ACHIEVED REMISSION (11) Thrombocytopenia Code(s): D69.6 - THROMBOCYTOPENIA, UNSPECIFIED
[2018-07-19] MEDS: amLODIPine BESYLATE 2.5 MG TABLET (FP) PO SCH (13:16)
[2018-07-19] MEDS: ATORVASTATIN CA 10 MG TABLET (FP) PO SCH (22:12)
[2018-07-20] MEDS: MEROPENEM 1 GM in DEXTROSE 5%-WATER 100 ML IVPB SCH ×3 (01:51→18:04)
[2018-07-20 08:08] LABS: HEMATOCRIT 30.4 % (35.4-49); HEMOGLOBIN 10.4 GM/dL (11.7-16.9); MCH 27.4 pg (25.7-33.7); MCHC 34.2 g/dl (32.0-35.9); MEAN CELL VOLUME 80.2 fl (80-96); MEAN PLT VOLUME 10.5 fl (7.5-11.1); PLATELET COUNT 85 K/MM3 (134-434); RBC 3.79 M/mm3 (4.00-5.60); RDW 18.2 % (11.9-15.9); WHITE BLOOD COUNT 8.5 K/mm3 (4.0-10.0)
[2018-07-20 08:10] LABS: ANION GAP 7 MMOL/L (8-16); BLOOD UREA NITROGEN 30 mg/dL (7-18); CALCIUM 8.1 mg/dL (8.5-10.1); CHLORIDE 100 mmol/L (98-107); CO2 31 mmol/L (21-32); CREATININE 1.1 mg/dL (0.55-1.3); GLUCOSE,RANDOM 122 mg/dL (74-106); POTASSIUM 3.5 mmol/L (3.5-5.1); SODIUM 137 mmol/L (136-145)
[2018-07-20] MEDS: metoPROLOL SUCCINATE 25 MG TAB.SR.24H (FP) PO SCH (11:33)
[2018-07-20] MEDS: ASPIRIN COATED 81 MG TABLET.EC PO SCH (11:33)
[2018-07-20] MEDS: AMINO ACIDS/PROTEIN HYDROLYS 30 ML LIQUID.PKT PO SCH ×2 (11:33→18:02)
[2018-07-20] MEDS: LOSARTAN POTASSIUM 50 MG TABLET (FP) PO SCH (11:34)
[2018-07-20] MEDS: amLODIPine BESYLATE 2.5 MG TABLET (FP) PO SCH (11:34)
[2018-07-20] MEDS: OXYBUTYNIN CHLORIDE 5 MG TABLET PO SCH ×2 (11:34→22:36)
[2018-07-20] MEDS ORDERED: PT OWN MED DRAWER 7, Y5N ONE ×3 (11:38→21:17)
[2018-07-20] MEDS: lamoTRIgine 25 MG TABLET PO SCH ×2 (11:39→22:37)
--- NOTE | 2018-07-20 14:40 | PN ---
Progress Note (short form) - Note Progress Note: Current Medications Acetaminophen (Tylenol -) 650 mg PO Q6H PRN PRN Reason: FEVER Last Admin: 07/19/18 09:11 Dose: 650 mg Amino Acids (Prosource No Carb Liquid Pkt) 30 ml PO BID@0800,1730 [facility] Last Admin: 07/20/18 11:33 Dose: 30 ml Amlodipine Besylate (Norvasc -) 2.5 mg PO DAILY [facility] Last Admin: 07/20/18 11:34 Dose: 2.5 mg Aspirin (Ecotrin -) 81 mg PO DAILY [facility] Last Admin: 07/20/18 11:33 Dose: 81 mg Atorvastatin Calcium (Lipitor -) 10 mg PO HS [facility] Last Admin: 07/19/18 22:12 Dose: 10 mg Meropenem 1 gm/ Dextrose 100 mls @ 200 mls/hr IVPB Q8H-IV [facility] Last Admin: 07/20/18 11:39 Dose: 200 mls/hr Lamotrigine (Lamictal -) 75 mg PO BID [facility] Last Admin: 07/20/18 11:39 Dose: 75 mg Losartan Potassium (Cozaar -) 50 mg PO DAILY [facility] Last Admin: 07/20/18 11:34 Dose: 50 mg Metoprolol Succinate (Toprol Xl -) 12.5 mg PO DAILY [facility] Last Admin: 07/20/18 11:33 Dose: 12.5 mg Oxybutynin Chloride (Ditropan -) 5 mg PO BID [facility] Last Admin: 07/20/18 11:34 Dose: 5 mg Laboratory Results - last 24 hr 07/20/18 07/20/18 07/20/18 06:27 06:30 06:30 WBC 8.5 RBC 3.79 L Hgb 10.4 L Hct 30.4 L MCV 80.2 MCH 27.4 MCHC 34.2 RDW 18.2 H Plt Count 85 L MPV 10.5 Sodium 137 Potassium 3.5 Chloride 100 Carbon Dioxide 31 Anion Gap 7 L BUN 30 H Creatinine 1.1 Creat Clearance w eGFR > 60 POC Glucometer 137 Random Glucose 122 H Calcium 8.1 L Vital Signs Temperature 98.3 F 07/20/18 06:00 Pulse Rate 61 07/20/18 06:00 Respiratory Rate 18 07/20/18 06:00 Blood Pressure 125/64 07/20/18 06:00 O2 Sat by Pulse Oximetry (%) 100 07/18/18 21:00 CC:okay today ````````````````` skin--no rashes; IV site not red eyes--non injected oral--no mucosal lesions lungs--grossly clear heart--RR abd--benign ext--no soft tissue tenderness neuro--alert, coherent ```````````````````````````````` Summ > Fever--resolved; non toxic looking > Cystitis--2 organisms identified; Pseudomas & ESBL EColi in urine; PLAN; on Meropenem; check C&S > Rt renal lesion--as described on CT; he is s/p Right kidney hematoma approx 10 yrs ago; though unclear if it fully resolved. On the D/c summary from [facility] a few weeks ago, it was noted that he had bilat renal cysts only. PLAN: have discussed this with urologist who had asked to see a copy of the report, as it may also represent a hemorrhagic cyst > Htn--BP better > DM--BS mostly in low 100's and is not in need of any meds so far. 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 Code(s): D41.00 - NEOPLASM OF UNCERTAIN BEHAVIOR OF UNSPECIFIED KIDNEY Qualifiers: Laterality: right Qualified Code(s): D41.01 - Neoplasm of uncertain behavior of right kidney (4) Hypertension with heart disease Code(s): I11.9 - HYPERTENSIVE HEART DISEASE WITHOUT HEART FAILURE (5) Type 2 diabetes mellitus Code(s): E11.9 - TYPE 2 DIABETES MELLITUS WITHOUT COMPLICATIONS Qualifiers: Diabetes mellitus complication detail: with other circulatory complications (6) Lipidemia Code(s): E78.5 - HYPERLIPIDEMIA, UNSPECIFIED (7) CVA, old, ataxia Code(s): I69.993 - ATAXIA FOLLOWING UNSPECIFIED CEREBROVASCULAR DISEASE (8) Seizure as late effect of cerebrovascular accident (CVA) Code(s): I69.398 - OTHER SEQUELAE OF CEREBRAL INFARCTION; R56.9 - UNSPECIFIED CONVULSIONS (9) Macular degeneration Code(s): H35.30 - UNSPECIFIED MACULAR DEGENERATION Qualifiers: Eye laterality: unspecified (10) CLL (chronic lymphocytic leukemia) Code(s): C91.90 - LYMPHOID LEUKEMIA, UNSPECIFIED NOT HAVING ACHIEVED REMISSION (11) Thrombocytopenia Code(s): D69.6 - THROMBOCYTOPENIA, UNSPECIFIED
[2018-07-20] MEDS: ATORVASTATIN CA 10 MG TABLET (FP) PO SCH (22:37)
[2018-07-21] MEDS: MEROPENEM 1 GM in DEXTROSE 5%-WATER 100 ML IVPB SCH ×2 (01:19→10:08)
[2018-07-21] MEDS: AMINO ACIDS/PROTEIN HYDROLYS 30 ML LIQUID.PKT PO SCH (08:23)
[2018-07-21] MEDS: LOSARTAN POTASSIUM 50 MG TABLET (FP) PO SCH (10:02)
[2018-07-21] MEDS: metoPROLOL SUCCINATE 25 MG TAB.SR.24H (FP) PO SCH (10:02)
[2018-07-21] MEDS: amLODIPine BESYLATE 2.5 MG TABLET (FP) PO SCH (10:02)
[2018-07-21] MEDS: OXYBUTYNIN CHLORIDE 5 MG TABLET PO SCH (10:02)
[2018-07-21] MEDS: ASPIRIN COATED 81 MG TABLET.EC PO SCH (10:03)
[2018-07-21] MEDS ORDERED: PT OWN MED DRAWER 7, Y5N ONE ×2 (10:04→10:08)
[2018-07-21] MEDS: lamoTRIgine 25 MG TABLET PO SCH (10:05)
[2018-07-21 14:59] VITALS: BP 125/65; PULSE 82; TEMP 98.3
--- NOTE | 2018-07-21 15:17 | PN ---
Progress Note, Physician History of Present Illness: No c/o scrotal pain suprapubic catheter in place draining urine Afebrile WBC WNL BC no growth - Current Medication List Current Medications: Active Medications Acetaminophen (Tylenol -) 650 mg PO Q6H PRN PRN Reason: FEVER Last Admin: 07/19/18 09:11 Dose: 650 mg Amino Acids (Prosource No Carb Liquid Pkt) 30 ml PO BID@0800,1730 [facility] Last Admin: 07/21/18 08:23 Dose: 30 ml Amlodipine Besylate (Norvasc -) 2.5 mg PO DAILY [facility] Last Admin: 07/21/18 10:02 Dose: 2.5 mg Aspirin (Ecotrin -) 81 mg PO DAILY [facility] Last Admin: 07/21/18 10:03 Dose: 81 mg Atorvastatin Calcium (Lipitor -) 10 mg PO HS [facility] Last Admin: 07/20/18 22:37 Dose: 10 mg Meropenem 1 gm/ Dextrose 100 mls @ 200 mls/hr IVPB Q8H-IV [facility] Last Admin: 07/21/18 10:08 Dose: 200 mls/hr Lamotrigine (Lamictal -) 75 mg PO BID [facility] Last Admin: 07/21/18 10:05 Dose: 75 mg Losartan Potassium (Cozaar -) 50 mg PO DAILY [facility] Last Admin: 07/21/18 10:02 Dose: 50 mg Metoprolol Succinate (Toprol Xl -) 12.5 mg PO DAILY [facility] Last Admin: 07/21/18 10:02 Dose: 12.5 mg Oxybutynin Chloride (Ditropan -) 5 mg PO BID [facility] Last Admin: 07/21/18 10:02 Dose: 5 mg - Objective Vital Signs: Vital Signs Temperature 98.3 F 07/21/18 14:56 Pulse Rate 82 07/21/18 14:56 Respiratory Rate 16 07/21/18 14:56 Blood Pressure 125/65 07/21/18 14:56 O2 Sat by Pulse Oximetry (%) 100 07/18/18 21:00 Constitutional: Yes: No Distress Eyes: Yes: Conjunctiva Clear Cardiovascular: Yes: Regular Rate and Rhythm, S1, S2 Respiratory: Yes: CTA Bilaterally Gastrointestinal: Yes: Normal Bowel Sounds, Soft. No: Tenderness Genitourinary: Yes: Other (SCROTAL SWELLING RESOLVED; ERYTHEMA NEARLY ALL RESOLVED) Labs: CBC, BMP 07/20/18 06:30 07/20/18 06:30 Assessment/Plan Scrotal cellulitis improved S/P I&D scrotal abscess + urine c/s Pseudomonas, ESBL Discontinue meropenem, observe off Outpatient follow up Contact precautions
--- NOTE | 2018-07-21 17:23 | DS ---
Physical Examination Vital Signs: Vital Signs Temperature 98.3 F 07/21/18 14:56 Pulse Rate 82 07/21/18 14:56 Respiratory Rate 16 07/21/18 14:56 Blood Pressure 125/65 07/21/18 14:56 O2 Sat by Pulse Oximetry (%) 100 07/18/18 21:00 Constitutional: Yes: Well Nourished, No Distress, Calm Eyes: Yes: WNL, Conjunctiva Clear Neck: Yes: Supple Cardiovascular: Yes: Regular Rate and Rhythm Respiratory: Yes: Regular, CTA Bilaterally Gastrointestinal: Yes: Normal Bowel Sounds, Soft Musculoskeletal: Yes: WNL Extremities: Yes: WNL Edema: No Integumentary: Yes: WNL Neurological: Yes: WNL ...Motor Strength: WNL Psychiatric: Yes: WNL Labs: CBC, BMP 07/20/18 06:30 07/20/18 06:30 Discharge Summary Reason For Visit: URINART TRACT INFECTION,CELLULITIS SCROTUM Current Active Problems CLL (chronic lymphocytic leukemia) (Acute) CVA, old, ataxia (Acute) Cellulitis of scrotum (Acute) Hypertension with heart disease (Acute) Lipidemia (Acute) Macular degeneration (Acute) Neoplasm of uncertain behavior of kidney (Acute) Seizure as late effect of cerebrovascular accident (CVA) (Acute) Thrombocytopenia (Acute) Type 2 diabetes mellitus (Acute) UTI (urinary tract infection) (Acute) Urinary catheter dysfunction (Acute) Hx prostate cancer chronic anemia Hospital Course: 82 YOM admitted for vague sympt of malaise and possible alf catheter dysfunction was admitted and found to have active cystitis. He had recently completed a lengthy course of IV Abs for scrotal cellulitis (Tx at [facility]). He was seen by ID and Urology who felt he still had some degree of scrotal inflammation. The organisms fpound in the urine were Pseudomnas and ESBL E Coli , and was Tx with meropenem. He remained stable throughout his stayt except on only 1 day when he spiked a temperature but was short lived. there were no associated Sx; CXR was negative, BC taken (negative to date). WBC remained NL and was non toxic appearing on clinical basis. CT of abd did reveal the presence of a Rt renal neoplasm (unknown nature) which appeared radiologically suspicious for cancer. he had no c/o abd or flank pain. he was cleared to be d/c 'd by ID. Condition: Guarded - Instructions Diet, Activity, Other Instructions: diet same as before follow up with Dr Guidry in AM If blood pressure is too low (TOP number at 100 or less then stop the Losartan) check your blood sugar daily Referrals: Rogelio Marks MD [Primary Care Provider] - Disposition: HOME - Home Medications Comprehensive Discharge Medication List: Ambulatory Orders Isradipine 5 mg PO DAILY #30 capsule 07/21/18 Lamotrigine 100 mg PO BID #60 tablet 07/21/18 Losartan/Hydrochlorothiazide [Losartan-Hctz 100-25 mg Tab] 1 each PO DAILY #30 tablet 07/21/18 Metoprolol Succinate [Toprol Xl -] 25 mg PO DAILY #30 tab.sr.24h 07/21/18 Oxybutynin Chloride [Oxybutynin Chloride ER] 10 mg PO DAILY #30 tab.er.24 Simvastatin 20 mg PO DAILY #30 tablet 07/21/18 Glimepiride 1mg daily
== END 2018-07-21 18:02 | disposition home or self-care (01) | DRG 699 ==
LOC: JER 12:14 → JERBED 22:03 → J8W 07-13 14:44 → OBSVTOIN 07-14 17:47 → J8W 07-17 14:54
PROVIDERS: ADMIT Internal Medicine; ATTEND Internal Medicine
DX: T83.018A Breakdown (mechanical) of other urinary catheter, initial encounter (principal); C91.90 Lymphoid leukemia, unspecified not having achieved remission; N30.90 Cystitis, unspecified without hematuria; N49.2 Inflammatory disorders of scrotum; E11.9 Type 2 diabetes mellitus without complications; E78.5 Hyperlipidemia, unspecified; D69.6 Thrombocytopenia, unspecified; H35.30 Unspecified macular degeneration; Y83.9 Surgical procedure, unspecified as the cause of abnormal reaction of the patient, or of later complication, without mention of misadventure at the time of the procedure; I11.9 Hypertensive heart disease without heart failure
CPT/HCPCS: 36415; 71045-TC-FY; 74177-TC; 80048; 80053; 81003; 81015; 82962; 83036; 84443; 85025; 85027; 85651; 87040; 87086; 87186; 99284-25; G0378; J7030

== ENCOUNTER 2020-10-12 13:55 | Inpatient (IN) | payer BC, OTHER ==
[2020-10-12 16:18] LABS: CALCIUM 8.5 mg/dL (8.5-10.1)
[2020-10-12 16:19] LABS: ALBUMIN 2.6 g/dl (3.4-5.0); BLOOD UREA NITROGEN 16.5 mg/dL (7-18); INR 2.58 (0.83-1.09); PROTHROMBIN TIME (PATIENT) 30.9 SEC (9.7-13.0)
[2020-10-12 16:22] LABS: ACTIVATED PTT 46.9 SECONDS (25.2-36.5); CREATININE 1.3 mg/dL (0.55-1.3)
[2020-10-12 16:23] LABS: BASO % 0.7 % (0-2.0); BILIRUBIN,TOTAL 0.8 mg/dL (0.2-1); HEMATOCRIT 37.9 % (35.4-49); HEMOGLOBIN 11.7 GM/dL (11.7-16.9); LYMPH % 79.1 % (8-40); MCH 25.2 pg (25.7-33.7); MCHC 30.9 g/dl (32.0-35.9); MEAN CELL VOLUME 81.7 fl (80-96); MEAN PLT VOLUME 9.7 fl (7.5-11.1); MONO % 1.2 % (3.8-10.2); PLATELET COUNT 185 K/MM3 (134-434); RBC 4.64 M/mm3 (4.00-5.60); RDW 23.1 % (11.9-15.9); TOT PROT 6.2 g/dl (6.4-8.2); WHITE BLOOD COUNT 28.9 K/mm3 (4.0-10.0)
[2020-10-12] MEDS ORDERED: CEFTRIAXONE 1 GM in DEXTROSE 5%-WATER - 100 ML IVPB ONE (17:02)
[2020-10-12] MEDS ORDERED: AZITHROMYCIN IVPB 500 MG in DEXTROSE 5%-WATER - 250 ML IVPB ONE (17:02)
[2020-10-12] MEDS ORDERED: CEFTRIAXONE 1 GM/50 ML BAG ONE (17:13)
[2020-10-12] MEDS ORDERED: AZITHROMYCIN IVPB 500 MG/250 ML BAG IVPB ONE (17:13)
[2020-10-12] MEDS ORDERED: SODIUM CHLORIDE 1,000 ML IV SCH ×2 (18:00→22:52)
[2020-10-12] MEDS ORDERED: ALBUTEROL SO4 0.083% IH SOL 2.5 MG/3 ML VIAL.NEB. NEB SCH (18:00)
[2020-10-12] MEDS ORDERED: MAGNESIUM HYDROX 2400MG/30ML ORAL SUSPENSION 30 ML CUP PO SCH (18:00)
[2020-10-12 18:42] LABS: ANISOCYTOSIS 3+; MACROCYTOSIS 1+; PLATELET ESTIMATE NORMAL
[2020-10-12] MEDS ORDERED: ALBUTEROL SO4 0.083% IH SOL 2.5 MG/3 ML VIAL.NEB. NEB ONE (18:56)
[2020-10-12] MEDS ORDERED: ASCORBIC ACID 500 MG TABLET (FP) ONE (18:56)
[2020-10-12] MEDS ORDERED: SENNOSIDES 8.6MG TABLET (FP) PO ONE (18:57)
[2020-10-12 19:33] LABS: URINE APPEARANCE CLOUDY; URINE BILIRUBIN 1+ (NEGATIVE); URINE COLOR DK YELLOW; URINE GLUCOSE (UA) NEGATIVE (NEGATIVE); URINE KETONE TRACE (NEGATIVE); URINE LEUK ESTERASE 1+ (NEGATIVE); URINE NITRITE NEGATIVE (NEGATIVE); URINE PROTEIN 4+ (NEGATIVE)
[2020-10-12] MEDS: SENNOSIDES 8.6MG TABLET (FP) PO SCH (19:46)
[2020-10-12] MEDS: ASCORBIC ACID 500 MG TABLET (FP) PO SCH (19:46)
[2020-10-12 19:50] LABS: URINE RBC >100 /uL (0-23.9)
[2020-10-12 19:51] LABS: URINE BACTERIA FEW /uL (0-1359); URINE WBC 0-3 /uL (0-25.8)
[2020-10-12] MEDS ORDERED: ALBUTEROL SO4 0.083% IH SOL 2.5 MG/3 ML VIAL.NEB. NEB PRN (19:53)
[2020-10-12] MEDS ORDERED: ATORVASTATIN CA 10 MG TABLET (FP) PO SCH (22:00)
[2020-10-12] MEDS ORDERED: TOLTERODINE TARTRATE LA 2 MG CAP.SR.24H PO SCH (22:00)
[2020-10-12] MEDS ORDERED: INSULIN SLIDING SCALE (NOVOLOG) 1 VIAL SQ SCH (22:00)
[2020-10-12] MEDS ORDERED: lamoTRIgine 100 MG TABLET ONE (22:37)
[2020-10-12] MEDS ORDERED: ATORVASTATIN CA 10 MG TABLET (FP) ONE (22:37)
[2020-10-12] MEDS: lamoTRIgine 100 MG TABLET PO SCH (22:41)
[2020-10-12] MEDS: AMMONIUM LACTATE 12% LOTION 225 GM BOTTLE TP SCH (22:52)
[2020-10-12] MEDS ORDERED: RIVAROXABAN 15 MG TABLET PO STA (22:54)
[2020-10-13 07:45] LABS: HEMATOCRIT 31.9 % (35.4-49); MCH 25.6 pg (25.7-33.7); MCHC 31.4 g/dl (32.0-35.9); MEAN CELL VOLUME 81.5 fl (80-96); MEAN PLT VOLUME 8.7 fl (7.5-11.1); PLATELET COUNT 137 K/MM3 (134-434); RBC 3.92 M/mm3 (4.00-5.60); RDW 23.2 % (11.9-15.9); WHITE BLOOD COUNT 12.3 K/mm3 (4.0-10.0)
[2020-10-13 08:33] LABS: BLOOD UREA NITROGEN 15.9 mg/dL (7-18); CALCIUM 7.9 mg/dL (8.5-10.1)
[2020-10-13 08:34] LABS: ALBUMIN 2.2 g/dl (3.4-5.0); MAGNESIUM 2.1 mg/dL (1.8-2.4)
[2020-10-13] MEDS ORDERED: cefTRIAXone SODIUM 1 GM VIAL ONE (08:36)
[2020-10-13] MEDS ORDERED: DEXTROSE 5%-WATER - 50 ML IVPB ONE (08:36)
[2020-10-13 08:38] LABS: BILIRUBIN,TOTAL 0.8 mg/dL (0.2-1); TOT PROT 5.3 g/dl (6.4-8.2)
[2020-10-13] MEDS: PANTOPRAZOLE 40 MG TABLET PO SCH (10:17)
[2020-10-13] MEDS: MULTIVITAMINS (DAILY MVI) TABLET (FP) PO SCH (10:18)
[2020-10-13] MEDS: metoPROLOL SUCCINATE 25 MG TAB.SR.24H (FP) PO SCH (10:18)
[2020-10-13] MEDS: RIVAROXABAN 15 MG TABLET PO SCH ×3 (10:23→22:35)
[2020-10-13] MEDS: AMMONIUM LACTATE 12% LOTION 225 GM BOTTLE TP SCH ×2 (10:23→22:35)
[2020-10-13] MEDS: AZITHROMYCIN IVPB 500 MG/250 ML BAG IVPB SCH (10:23)
[2020-10-13] MEDS: CEFTRIAXONE 1 GM in DEXTROSE 5%-WATER - 50 ML IVPB SCH (10:23)
[2020-10-13] MEDS: lamoTRIgine 100 MG TABLET PO SCH ×2 (11:32→22:34)
[2020-10-13] MEDS ORDERED: KCL 10 MEQ IVPB 10 MEQ/100 ML INFUS.BAG IVPB SCH (13:00)
[2020-10-13] MEDS ORDERED: PT OWN MED DRAWER 7, Y5N ONE ×2 (15:34→20:07)
[2020-10-13] MEDS: POTASSIUM CHLORIDE 10 MEQ in SODIUM CHLORIDE 0.45% 1,000 ML IVPB SCH (15:36)
[2020-10-13] MEDS ORDERED: PNEUMOC 13-VAL CONJ-DIP CRM/PF 0.5 ML DISP.SYRIN IM ONE (17:00)
[2020-10-13] MEDS: SENNOSIDES 8.6MG TABLET (FP) PO SCH (17:02)
[2020-10-13] MEDS: ASCORBIC ACID 500 MG TABLET (FP) PO SCH (17:02)
[2020-10-14 08:20] LABS: HEMATOCRIT 29.5 % (35.4-49); HEMOGLOBIN 9.2 GM/dL (11.7-16.9); MCH 25.5 pg (25.7-33.7); MCHC 31.3 g/dl (32.0-35.9); MEAN CELL VOLUME 81.5 fl (80-96); MEAN PLT VOLUME 8.5 fl (7.5-11.1); PLATELET COUNT 113 K/MM3 (134-434); RBC 3.62 M/mm3 (4.00-5.60); RDW 23.3 % (11.9-15.9); WHITE BLOOD COUNT 13.1 K/mm3 (4.0-10.0)
[2020-10-14 08:31] LABS: INR 2.47 (0.83-1.09); PROTHROMBIN TIME (PATIENT) 29.6 SEC (9.7-13.0)
[2020-10-14 08:44] LABS: CALCIUM 8.6 mg/dL (8.5-10.1)
[2020-10-14 08:45] LABS: BLOOD UREA NITROGEN 14.8 mg/dL (7-18)
[2020-10-14] MEDS ORDERED: cefTRIAXone SODIUM 1 GM VIAL ONE ×2 (08:48→08:54)
[2020-10-14] MEDS ORDERED: DEXTROSE 5%-WATER - 50 ML IVPB ONE (08:54)
[2020-10-14] MEDS ORDERED: HEPARIN NA (PORCINE) 5,000 UNITS/ML 1ML VIAL IVPUSH PRN ×2 (09:03)
[2020-10-14] MEDS ORDERED: HEPARIN - 25,000 UNIT in SODIUM CHLORIDE 495 ML IV SCH (09:45)
[2020-10-14] MEDS: lamoTRIgine 100 MG TABLET PO SCH ×2 (10:00→22:01)
[2020-10-14] MEDS: PANTOPRAZOLE 40 MG TABLET PO SCH (10:00)
[2020-10-14] MEDS: MULTIVITAMINS (DAILY MVI) TABLET (FP) PO SCH (10:00)
[2020-10-14] MEDS: metoPROLOL SUCCINATE 25 MG TAB.SR.24H (FP) PO SCH (10:00)
[2020-10-14] MEDS: AMMONIUM LACTATE 12% LOTION 225 GM BOTTLE TP SCH ×2 (11:18→22:00)
[2020-10-14] MEDS: CEFTRIAXONE 1 GM in DEXTROSE 5%-WATER - 50 ML IVPB SCH (11:19)
[2020-10-14] MEDS: AZITHROMYCIN IVPB 500 MG/250 ML BAG IVPB SCH (11:19)
[2020-10-14 12:46] LABS: BASO % 0.6 % (0-2.0); HEMATOCRIT 31.3 % (35.4-49); HEMOGLOBIN 9.6 GM/dL (11.7-16.9); LYMPH % 76.8 % (8-40); MCH 25.2 pg (25.7-33.7); MCHC 30.8 g/dl (32.0-35.9); MEAN CELL VOLUME 81.9 fl (80-96); MEAN PLT VOLUME 9.4 fl (7.5-11.1); NEUT % 20.6 % (42.8-82.8); PLATELET COUNT 141 K/MM3 (134-434); RBC 3.82 M/mm3 (4.00-5.60); RDW 23.4 % (11.9-15.9); WHITE BLOOD COUNT 18.5 K/mm3 (4.0-10.0)
[2020-10-14 12:54] LABS: INR 2.03 (0.83-1.09); PROTHROMBIN TIME (PATIENT) 24.5 SEC (9.7-13.0)
[2020-10-14 12:57] LABS: ACTIVATED PTT 38.8 SECONDS (25.2-36.5)
[2020-10-14 13:42] LABS: ANISOCYTOSIS 2+; MACROCYTOSIS 0; PLATELET ESTIMATE DECREASED
[2020-10-14] MEDS ORDERED: FUROSEMIDE 40 MG/4 ML INJECTABLE VIAL IVPUSH ONE (14:50)
[2020-10-14] MEDS: ENOXAPARIN NA (PORCINE) 40 MG/0.4 ML DISP.SYRIN SQ SCH ×2 (15:59→22:03)
[2020-10-14] MEDS: POTASSIUM CHLORIDE 10 MEQ in SODIUM CHLORIDE 0.45% 1,000 ML IVPB SCH (15:59)
[2020-10-14] MEDS: ASCORBIC ACID 500 MG TABLET (FP) PO SCH (17:05)
[2020-10-14] MEDS: SENNOSIDES 8.6MG TABLET (FP) PO SCH (17:06)
[2020-10-14] MEDS ORDERED: PT OWN MED DRAWER 7, Y5N ONE (21:22)
[2020-10-15 08:26] LABS: HEMATOCRIT 27.8 % (35.4-49); HEMOGLOBIN 8.7 GM/dL (11.7-16.9); MCH 25.7 pg (25.7-33.7); MCHC 31.4 g/dl (32.0-35.9); MEAN CELL VOLUME 81.7 fl (80-96); MEAN PLT VOLUME 9.9 fl (7.5-11.1); PLATELET COUNT 119 K/MM3 (134-434); WHITE BLOOD COUNT 15.6 K/mm3 (4.0-10.0)
[2020-10-15 08:38] LABS: CALCIUM 7.7 mg/dL (8.5-10.1)
[2020-10-15 08:39] LABS: BLOOD UREA NITROGEN 18.4 mg/dL (7-18)
[2020-10-15 08:42] LABS: CREATININE 1.1 mg/dL (0.55-1.3)
[2020-10-15 08:57] LABS: INR 1.76 (0.83-1.09)
[2020-10-15 08:59] LABS: ACTIVATED PTT 35.8 SECONDS (25.2-36.5)
[2020-10-15] MEDS ORDERED: DEXTROSE 5%-WATER - 50 ML IVPB ONE (09:31)
[2020-10-15] MEDS ORDERED: cefTRIAXone SODIUM 1 GM VIAL ONE (09:31)
[2020-10-15] MEDS: ENOXAPARIN NA (PORCINE) 40 MG/0.4 ML DISP.SYRIN SQ SCH ×2 (09:40→21:57)
[2020-10-15] MEDS: PANTOPRAZOLE 40 MG TABLET PO SCH (09:40)
[2020-10-15] MEDS: MULTIVITAMINS (DAILY MVI) TABLET (FP) PO SCH (09:40)
[2020-10-15] MEDS: metoPROLOL SUCCINATE 25 MG TAB.SR.24H (FP) PO SCH (09:40)
[2020-10-15] MEDS: CEFTRIAXONE 1 GM in DEXTROSE 5%-WATER - 50 ML IVPB SCH (09:40)
[2020-10-15] MEDS: AMMONIUM LACTATE 12% LOTION 225 GM BOTTLE TP SCH ×2 (09:41→21:56)
[2020-10-15] MEDS: AZITHROMYCIN IVPB 500 MG/250 ML BAG IVPB SCH (09:41)
[2020-10-15] MEDS: lamoTRIgine 100 MG TABLET PO SCH ×2 (09:41→21:57)
[2020-10-15] MEDS: POTASSIUM CHLORIDE 10 MEQ in SODIUM CHLORIDE 0.45% 1,000 ML IVPB SCH (13:15)
[2020-10-15] MEDS: ASCORBIC ACID 500 MG TABLET (FP) PO SCH (17:04)
[2020-10-15] MEDS: SENNOSIDES 8.6MG TABLET (FP) PO SCH (17:04)
[2020-10-15] MEDS ORDERED: PT OWN MED DRAWER 7, Y5N ONE (20:41)
[2020-10-16 07:45] LABS: HEMATOCRIT 26.3 % (35.4-49); HEMOGLOBIN 8.3 GM/dL (11.7-16.9); MCH 25.9 pg (25.7-33.7); MCHC 31.5 g/dl (32.0-35.9); MEAN CELL VOLUME 82.2 fl (80-96); MEAN PLT VOLUME 10.4 fl (7.5-11.1); PLATELET COUNT 95 K/MM3 (134-434); RDW 23.4 % (11.9-15.9)
[2020-10-16] MEDS ORDERED: PT OWN MED DRAWER 7, Y5N ONE (09:35)
[2020-10-16] MEDS ORDERED: cefTRIAXone SODIUM 1 GM VIAL ONE (09:35)
[2020-10-16] MEDS ORDERED: DEXTROSE 5%-WATER - 50 ML IVPB ONE (09:35)
[2020-10-16] MEDS: CEFTRIAXONE 1 GM in DEXTROSE 5%-WATER - 50 ML IVPB SCH (09:41)
[2020-10-16] MEDS: ENOXAPARIN NA (PORCINE) 40 MG/0.4 ML DISP.SYRIN SQ SCH ×2 (09:41→21:43)
[2020-10-16] MEDS: MULTIVITAMINS (DAILY MVI) TABLET (FP) PO SCH (09:42)
[2020-10-16] MEDS: PANTOPRAZOLE 40 MG TABLET PO SCH (09:42)
[2020-10-16] MEDS: lamoTRIgine 100 MG TABLET PO SCH ×2 (09:42→22:12)
[2020-10-16] MEDS: AZITHROMYCIN IVPB 500 MG/250 ML BAG IVPB SCH (09:42)
[2020-10-16] MEDS: AMMONIUM LACTATE 12% LOTION 225 GM BOTTLE TP SCH ×2 (09:42→21:46)
[2020-10-16] MEDS: metoPROLOL SUCCINATE 25 MG TAB.SR.24H (FP) PO SCH (09:42)
[2020-10-16] MEDS: POTASSIUM CHLORIDE 10 MEQ in SODIUM CHLORIDE 0.45% 1,000 ML IVPB SCH (13:33)
[2020-10-16] MEDS: ASCORBIC ACID 500 MG TABLET (FP) PO SCH (17:29)
[2020-10-16] MEDS: ERTAPENEM SODIUM 1 GM in SODIUM CHLORIDE 50 ML IVPB SCH (17:29)
[2020-10-16] MEDS: SENNOSIDES 8.6MG TABLET (FP) PO SCH (17:29)
[2020-10-17 07:44] LABS: BASO % 0.9 % (0-2.0); EOS % 0.1 % (0-4.5); HEMATOCRIT 26.7 % (35.4-49); HEMOGLOBIN 8.5 GM/dL (11.7-16.9); LYMPH % 68.5 % (8-40); MCH 26.2 pg (25.7-33.7); MCHC 31.8 g/dl (32.0-35.9); MEAN CELL VOLUME 82.3 fl (80-96); MEAN PLT VOLUME 10.7 fl (7.5-11.1); MONO % 3.2 % (3.8-10.2); NEUT % 27.3 % (42.8-82.8); PLATELET COUNT 91 K/MM3 (134-434); RBC 3.24 M/mm3 (4.00-5.60); WHITE BLOOD COUNT 13.6 K/mm3 (4.0-10.0)
[2020-10-17 07:45] LABS: HEMATOCRIT 26.3 % (35.4-49); HEMOGLOBIN 8.3 GM/dL (11.7-16.9); MCH 26.2 pg (25.7-33.7); MCHC 31.8 g/dl (32.0-35.9); MEAN CELL VOLUME 82.4 fl (80-96); MEAN PLT VOLUME 10.7 fl (7.5-11.1); PLATELET COUNT 90 K/MM3 (134-434); RBC 3.19 M/mm3 (4.00-5.60); RDW 23.6 % (11.9-15.9); WHITE BLOOD COUNT 13.1 K/mm3 (4.0-10.0)
[2020-10-17 08:10] LABS: CALCIUM 7.6 mg/dL (8.5-10.1)
[2020-10-17 08:11] LABS: BLOOD UREA NITROGEN 16.7 mg/dL (7-18)
[2020-10-17 08:14] LABS: CREATININE 0.8 mg/dL (0.55-1.3)
[2020-10-17 09:03] LABS: ANISOCYTOSIS 1+; MACROCYTOSIS 1+; OVALOCYTE 1+; PLATELET ESTIMATE DECREASED
[2020-10-17] MEDS: PANTOPRAZOLE 40 MG TABLET PO SCH (09:49)
[2020-10-17] MEDS: lamoTRIgine 100 MG TABLET PO SCH ×2 (09:49→21:53)
[2020-10-17] MEDS: AMMONIUM LACTATE 12% LOTION 225 GM BOTTLE TP SCH ×2 (09:49→21:52)
[2020-10-17] MEDS: ENOXAPARIN NA (PORCINE) 40 MG/0.4 ML DISP.SYRIN SQ SCH ×2 (09:49→21:53)
[2020-10-17] MEDS: metoPROLOL SUCCINATE 25 MG TAB.SR.24H (FP) PO SCH (09:49)
[2020-10-17] MEDS: MULTIVITAMINS (DAILY MVI) TABLET (FP) PO SCH (09:49)
[2020-10-17] MEDS: ERTAPENEM SODIUM 1 GM in SODIUM CHLORIDE 50 ML IVPB SCH (09:49)
[2020-10-17] MEDS: POTASSIUM CHLORIDE 10 MEQ in SODIUM CHLORIDE 0.45% 1,000 ML IVPB SCH (13:44)
[2020-10-17] MEDS: SENNOSIDES 8.6MG TABLET (FP) PO SCH (17:31)
[2020-10-17] MEDS ORDERED: FUROSEMIDE 20 MG TABLET (FP) PO ONE (17:51)
[2020-10-17] MEDS: ASCORBIC ACID 500 MG TABLET (FP) PO SCH (18:05)
[2020-10-18 06:11] LABS: SARS-CoV-2 NAA Not Detected (Not Detected)
[2020-10-18 07:37] LABS: HEMATOCRIT 28.7 % (35.4-49); HEMOGLOBIN 8.9 GM/dL (11.7-16.9); MCH 26.2 pg (25.7-33.7); MCHC 30.9 g/dl (32.0-35.9); MEAN CELL VOLUME 84.7 fl (80-96); MEAN PLT VOLUME 9.7 fl (7.5-11.1); PLATELET COUNT 85 K/MM3 (134-434); RBC 3.39 M/mm3 (4.00-5.60); RDW 24.2 % (11.9-15.9); WHITE BLOOD COUNT 9.4 K/mm3 (4.0-10.0)
[2020-10-18 08:04] LABS: BLOOD UREA NITROGEN 14.5 mg/dL (7-18)
[2020-10-18 08:05] LABS: CREATININE 0.9 mg/dL (0.55-1.3)
[2020-10-18] MEDS ORDERED: PT OWN MED DRAWER 7, Y5N ONE ×2 (08:44→20:20)
[2020-10-18] MEDS: ERTAPENEM SODIUM 1 GM in SODIUM CHLORIDE 50 ML IVPB SCH (10:22)
[2020-10-18] MEDS: FUROSEMIDE 40 MG TABLET (FP) PO SCH (10:22)
[2020-10-18] MEDS: ENOXAPARIN NA (PORCINE) 40 MG/0.4 ML DISP.SYRIN SQ SCH ×2 (10:22→21:23)
[2020-10-18] MEDS: ASCORBIC ACID 500 MG TABLET (FP) PO SCH (10:22)
[2020-10-18] MEDS: PANTOPRAZOLE 40 MG TABLET PO SCH (10:22)
[2020-10-18] MEDS: AMMONIUM LACTATE 12% LOTION 225 GM BOTTLE TP SCH ×2 (10:22→21:23)
[2020-10-18] MEDS: MULTIVITAMINS (DAILY MVI) TABLET (FP) PO SCH (10:22)
[2020-10-18] MEDS: metoPROLOL SUCCINATE 25 MG TAB.SR.24H (FP) PO SCH (10:22)
[2020-10-18] MEDS: lamoTRIgine 100 MG TABLET PO SCH ×2 (10:22→21:23)
[2020-10-18] MEDS: ACETAMINOPHEN 500 MG TABLET (FP) PO PRN ×2 (13:47→21:24)
[2020-10-18] MEDS: POTASSIUM CHLORIDE 10 MEQ in SODIUM CHLORIDE 0.45% 1,000 ML IVPB SCH (13:47)
[2020-10-18] MEDS: SENNOSIDES 8.6MG TABLET (FP) PO SCH (18:48)
[2020-10-19 07:17] LABS: HEMATOCRIT 30.3 % (35.4-49); HEMOGLOBIN 9.2 GM/dL (11.7-16.9); MCH 25.8 pg (25.7-33.7); MCHC 30.2 g/dl (32.0-35.9); MEAN CELL VOLUME 85.4 fl (80-96); PLATELET COUNT 80 K/MM3 (134-434); RBC 3.54 M/mm3 (4.00-5.60); RDW 24.5 % (11.9-15.9); WHITE BLOOD COUNT 10.1 K/mm3 (4.0-10.0)
[2020-10-19 07:41] LABS: BLOOD UREA NITROGEN 14.5 mg/dL (7-18); CALCIUM 7.7 mg/dL (8.5-10.1)
[2020-10-19 07:44] LABS: CREATININE 0.9 mg/dL (0.55-1.3)
[2020-10-19] MEDS ORDERED: PT OWN MED DRAWER 7, Y5N ONE ×3 (09:21→21:43)
[2020-10-19] MEDS: FUROSEMIDE 40 MG TABLET (FP) PO SCH (09:26)
[2020-10-19] MEDS: MULTIVITAMINS (DAILY MVI) TABLET (FP) PO SCH (09:26)
[2020-10-19] MEDS: PANTOPRAZOLE 40 MG TABLET PO SCH (09:26)
[2020-10-19] MEDS: metoPROLOL SUCCINATE 25 MG TAB.SR.24H (FP) PO SCH (09:26)
[2020-10-19] MEDS: ENOXAPARIN NA (PORCINE) 40 MG/0.4 ML DISP.SYRIN SQ SCH ×2 (09:26→21:48)
[2020-10-19] MEDS: lamoTRIgine 100 MG TABLET PO SCH ×2 (09:27→21:48)
[2020-10-19] MEDS: AMMONIUM LACTATE 12% LOTION 225 GM BOTTLE TP SCH ×2 (09:34→22:48)
[2020-10-19] MEDS ORDERED: KCL 10 MEQ IVPB 10 MEQ/100 ML INFUS.BAG IVPB SCH (10:15)
[2020-10-19] MEDS: ERTAPENEM SODIUM 1 GM in SODIUM CHLORIDE 50 ML IVPB SCH (11:22)
[2020-10-19] MEDS: POTASSIUM CHLORIDE 10 MEQ in SODIUM CHLORIDE 0.45% 1,000 ML IVPB SCH (12:47)
[2020-10-19] MEDS: SENNOSIDES 8.6MG TABLET (FP) PO SCH (17:11)
[2020-10-19 23:41] VITALS: BMI 23.4
[2020-10-20] MEDS ORDERED: PT OWN MED DRAWER 7, Y5N ONE ×4 (01:14→10:43)
[2020-10-20] MEDS: POTASSIUM CHLORIDE 10 MEQ in SODIUM CHLORIDE 0.45% 1,000 ML IVPB SCH ×2 (05:08→16:50)
[2020-10-20 07:33] LABS: HEMOGLOBIN 8.8 GM/dL (11.7-16.9); MCH 26.3 pg (25.7-33.7); MCHC 31.3 g/dl (32.0-35.9); MEAN CELL VOLUME 84.2 fl (80-96); MEAN PLT VOLUME 11.4 fl (7.5-11.1); PLATELET COUNT 94 K/MM3 (134-434); RBC 3.32 M/mm3 (4.00-5.60); RDW 24.6 % (11.9-15.9); WHITE BLOOD COUNT 8.7 K/mm3 (4.0-10.0)
[2020-10-20 07:51] LABS: CALCIUM 7.6 mg/dL (8.5-10.1)
[2020-10-20 07:52] LABS: ALBUMIN 2.1 g/dl (3.4-5.0); BLOOD UREA NITROGEN 14.3 mg/dL (7-18)
[2020-10-20 07:55] LABS: BILIRUBIN,TOTAL 0.4 mg/dL (0.2-1); CREATININE 0.9 mg/dL (0.55-1.3)
[2020-10-20] MEDS ORDERED: POTASSIUM CHLORIDE TABS 20 MEQ TABLET.ER (FP) PO ONE (08:42)
[2020-10-20] MEDS: ERTAPENEM SODIUM 1 GM in SODIUM CHLORIDE 50 ML IVPB SCH (09:14)
[2020-10-20] MEDS: metoPROLOL SUCCINATE 25 MG TAB.SR.24H (FP) PO SCH (09:49)
[2020-10-20] MEDS: ESCITALOPRAM OXALATE 10 MG TABLET PO SCH (09:49)
[2020-10-20] MEDS: FUROSEMIDE 40 MG TABLET (FP) PO SCH (09:49)
[2020-10-20] MEDS: MULTIVITAMINS (DAILY MVI) TABLET (FP) PO SCH (09:49)
[2020-10-20] MEDS: lamoTRIgine 100 MG TABLET PO SCH ×2 (09:49→21:40)
[2020-10-20] MEDS: PANTOPRAZOLE 40 MG TABLET PO SCH (09:49)
[2020-10-20] MEDS: ASCORBIC ACID 500 MG TABLET (FP) PO SCH (09:50)
[2020-10-20] MEDS: AMMONIUM LACTATE 12% LOTION 225 GM BOTTLE TP SCH ×2 (10:47→21:41)
[2020-10-20] MEDS: ENOXAPARIN NA (PORCINE) 40 MG/0.4 ML DISP.SYRIN SQ SCH ×2 (10:48→21:40)
[2020-10-20] MEDS: SENNOSIDES 8.6MG TABLET (FP) PO SCH (17:57)
[2020-10-20] MEDS: ALBUTEROL SO4 0.083% IH SOL 2.5 MG/3 ML VIAL.NEB. NEB SCH (20:35)
[2020-10-21] MEDS: ALBUTEROL SO4 0.083% IH SOL 2.5 MG/3 ML VIAL.NEB. NEB SCH ×3 (07:25→20:10)
[2020-10-21 08:37] LABS: CALCIUM 7.3 mg/dL (8.5-10.1)
[2020-10-21 08:39] LABS: BLOOD UREA NITROGEN 12.4 mg/dL (7-18)
[2020-10-21 08:42] LABS: CREATININE 0.8 mg/dL (0.55-1.3); HEMATOCRIT 26.2 % (35.4-49); HEMOGLOBIN 8.4 GM/dL (11.7-16.9); MCH 26.4 pg (25.7-33.7); MCHC 31.8 g/dl (32.0-35.9); MEAN CELL VOLUME 83.1 fl (80-96); MEAN PLT VOLUME 11.2 fl (7.5-11.1); PLATELET COUNT 76 K/MM3 (134-434); RBC 3.16 M/mm3 (4.00-5.60); WHITE BLOOD COUNT 8.1 K/mm3 (4.0-10.0)
[2020-10-21] MEDS ORDERED: PT OWN MED DRAWER 7, Y5N ONE ×2 (08:45→21:11)
[2020-10-21] MEDS: ERTAPENEM SODIUM 1 GM in SODIUM CHLORIDE 50 ML IVPB SCH (09:20)
[2020-10-21] MEDS: ESCITALOPRAM OXALATE 10 MG TABLET PO SCH (09:21)
[2020-10-21] MEDS: lamoTRIgine 100 MG TABLET PO SCH ×2 (09:21→21:13)
[2020-10-21] MEDS: PANTOPRAZOLE 40 MG TABLET PO SCH (09:23)
[2020-10-21] MEDS: metoPROLOL SUCCINATE 25 MG TAB.SR.24H (FP) PO SCH (09:23)
[2020-10-21] MEDS: AMMONIUM LACTATE 12% LOTION 225 GM BOTTLE TP SCH ×2 (09:23→21:16)
[2020-10-21] MEDS: MULTIVITAMINS (DAILY MVI) TABLET (FP) PO SCH (09:23)
[2020-10-21] MEDS: FUROSEMIDE 40 MG TABLET (FP) PO SCH (09:23)
[2020-10-21] MEDS: ENOXAPARIN NA (PORCINE) 40 MG/0.4 ML DISP.SYRIN SQ SCH ×2 (11:00→21:13)
[2020-10-21] MEDS: POTASSIUM CHLORIDE ORAL LIQUID 20 MEQ/15 ML PO SCH (13:29)
[2020-10-21] MEDS: POTASSIUM CHLORIDE 10 MEQ in SODIUM CHLORIDE 0.45% 1,000 ML IVPB SCH (17:11)
[2020-10-21] MEDS: SENNOSIDES 8.6MG TABLET (FP) PO SCH (17:15)
[2020-10-22] MEDS: ALBUTEROL SO4 0.083% IH SOL 2.5 MG/3 ML VIAL.NEB. NEB SCH ×3 (07:30→20:10)
[2020-10-22 07:50] LABS: HEMATOCRIT 29.3 % (35.4-49); HEMOGLOBIN 9.4 GM/dL (11.7-16.9); MCH 26.6 pg (25.7-33.7); MCHC 32.1 g/dl (32.0-35.9); MEAN CELL VOLUME 82.8 fl (80-96); MEAN PLT VOLUME 10.8 fl (7.5-11.1); PLATELET COUNT 92 K/MM3 (134-434); RBC 3.54 M/mm3 (4.00-5.60); RDW 25.1 % (11.9-15.9); WHITE BLOOD COUNT 12.3 K/mm3 (4.0-10.0)
[2020-10-22 08:06] LABS: BLOOD UREA NITROGEN 12.8 mg/dL (7-18); CALCIUM 7.4 mg/dL (8.5-10.1)
[2020-10-22 08:10] LABS: CREATININE 0.9 mg/dL (0.55-1.3)
[2020-10-22] MEDS ORDERED: PT OWN MED DRAWER 7, Y5N ONE ×2 (09:10→21:11)
[2020-10-22] MEDS: ERTAPENEM SODIUM 1 GM in SODIUM CHLORIDE 50 ML IVPB SCH (09:28)
[2020-10-22] MEDS: lamoTRIgine 100 MG TABLET PO SCH ×2 (09:29→21:41)
[2020-10-22] MEDS: ESCITALOPRAM OXALATE 10 MG TABLET PO SCH (09:29)
[2020-10-22] MEDS: FUROSEMIDE 40 MG TABLET (FP) PO SCH (09:29)
[2020-10-22] MEDS: POTASSIUM CHLORIDE ORAL LIQUID 20 MEQ/15 ML PO SCH (09:29)
[2020-10-22] MEDS: AMMONIUM LACTATE 12% LOTION 225 GM BOTTLE TP SCH ×2 (09:29→21:12)
[2020-10-22] MEDS: metoPROLOL SUCCINATE 25 MG TAB.SR.24H (FP) PO SCH (09:29)
[2020-10-22] MEDS: ENOXAPARIN NA (PORCINE) 40 MG/0.4 ML DISP.SYRIN SQ SCH ×2 (09:29→21:12)
[2020-10-22] MEDS: PANTOPRAZOLE 40 MG TABLET PO SCH (09:29)
[2020-10-22] MEDS: MULTIVITAMINS (DAILY MVI) TABLET (FP) PO SCH (09:29)
[2020-10-22] MEDS: POTASSIUM CHLORIDE 10 MEQ in SODIUM CHLORIDE 0.45% 1,000 ML IVPB SCH ×2 (13:51→19:35)
[2020-10-22] MEDS: SENNOSIDES 8.6MG TABLET (FP) PO SCH (18:50)
[2020-10-23 07:27] LABS: BASO % 0.5 % (0-2.0); EOS % 0.1 % (0-4.5); HEMATOCRIT 26.8 % (35.4-49); HEMOGLOBIN 8.5 GM/dL (11.7-16.9); LYMPH % 66.9 % (8-40); MCH 26.4 pg (25.7-33.7); MCHC 31.6 g/dl (32.0-35.9); MEAN CELL VOLUME 83.4 fl (80-96); MEAN PLT VOLUME 10.3 fl (7.5-11.1); MONO % 2.7 % (3.8-10.2); NEUT % 29.8 % (42.8-82.8); PLATELET COUNT 79 K/MM3 (134-434); RBC 3.21 M/mm3 (4.00-5.60); RDW 25.4 % (11.9-15.9); WHITE BLOOD COUNT 12.3 K/mm3 (4.0-10.0)
[2020-10-23] MEDS: ALBUTEROL SO4 0.083% IH SOL 2.5 MG/3 ML VIAL.NEB. NEB SCH ×3 (07:42→20:58)
[2020-10-23 07:44] LABS: ALBUMIN 2.1 g/dl (3.4-5.0); CALCIUM 7.6 mg/dL (8.5-10.1)
[2020-10-23 07:45] LABS: MAGNESIUM 1.9 mg/dL (1.8-2.4)
[2020-10-23 07:48] LABS: BILIRUBIN,TOTAL 0.5 mg/dL (0.2-1); BLOOD UREA NITROGEN 14.6 mg/dL (7-18)
[2020-10-23] MEDS: POTASSIUM CHLORIDE ORAL LIQUID 20 MEQ/15 ML PO SCH (09:55)
[2020-10-23] MEDS: metoPROLOL SUCCINATE 25 MG TAB.SR.24H (FP) PO SCH (09:55)
[2020-10-23] MEDS: ASCORBIC ACID 500 MG TABLET (FP) PO SCH (09:55)
[2020-10-23] MEDS: lamoTRIgine 100 MG TABLET PO SCH ×2 (09:55→21:25)
[2020-10-23] MEDS: PANTOPRAZOLE 40 MG TABLET PO SCH (09:56)
[2020-10-23] MEDS: FUROSEMIDE 40 MG TABLET (FP) PO SCH (09:56)
[2020-10-23] MEDS: MULTIVITAMINS (DAILY MVI) TABLET (FP) PO SCH (09:56)
[2020-10-23] MEDS: ESCITALOPRAM OXALATE 10 MG TABLET PO SCH (09:57)
[2020-10-23] MEDS: ENOXAPARIN NA (PORCINE) 40 MG/0.4 ML DISP.SYRIN SQ SCH ×2 (09:57→21:25)
[2020-10-23] MEDS: AMMONIUM LACTATE 12% LOTION 225 GM BOTTLE TP SCH ×2 (09:58→21:25)
[2020-10-23 11:38] LABS: ANISOCYTOSIS 1+; MACROCYTOSIS 0; PLATELET ESTIMATE DECREASED
[2020-10-23] MEDS ORDERED: KCL 10 MEQ IVPB 10 MEQ/100 ML INFUS.BAG IVPB SCH (13:15)
[2020-10-23] MEDS: POTASSIUM CHLORIDE 10 MEQ in SODIUM CHLORIDE 0.45% 1,000 ML IVPB SCH ×2 (13:50→19:00)
[2020-10-23] MEDS: guaiFENesin 200 MG/10 ML 10 ML UNIT-DOSE CUPS PO SCH ×2 (16:42→22:37)
[2020-10-23] MEDS: SENNOSIDES 8.6MG TABLET (FP) PO SCH (17:23)
[2020-10-24] MEDS: guaiFENesin 200 MG/10 ML 10 ML UNIT-DOSE CUPS PO SCH ×3 (06:27→22:51)
[2020-10-24 07:22] LABS: HEMATOCRIT 27.9 % (35.4-49); HEMOGLOBIN 8.7 GM/dL (11.7-16.9); MCH 26.6 pg (25.7-33.7); MCHC 31.3 g/dl (32.0-35.9); MEAN CELL VOLUME 84.8 fl (80-96); MEAN PLT VOLUME 10.8 fl (7.5-11.1); PLATELET COUNT 72 K/MM3 (134-434); RBC 3.29 M/mm3 (4.00-5.60); RDW 25.6 % (11.9-15.9); WHITE BLOOD COUNT 9.4 K/mm3 (4.0-10.0)
[2020-10-24 07:53] LABS: BLOOD UREA NITROGEN 16.9 mg/dL (7-18); CALCIUM 7.4 mg/dL (8.5-10.1)
[2020-10-24 07:56] LABS: CREATININE 1.1 mg/dL (0.55-1.3)
[2020-10-24] MEDS: ALBUTEROL SO4 0.083% IH SOL 2.5 MG/3 ML VIAL.NEB. NEB SCH ×3 (08:14→20:43)
[2020-10-24] MEDS ORDERED: PT OWN MED DRAWER 7, Y5N ONE ×2 (09:18→21:48)
[2020-10-24] MEDS: ENOXAPARIN NA (PORCINE) 40 MG/0.4 ML DISP.SYRIN SQ SCH ×2 (09:38→22:51)
[2020-10-24] MEDS: lamoTRIgine 100 MG TABLET PO SCH ×2 (09:38→22:51)
[2020-10-24] MEDS: MULTIVITAMINS (DAILY MVI) TABLET (FP) PO SCH (09:38)
[2020-10-24] MEDS: metoPROLOL SUCCINATE 25 MG TAB.SR.24H (FP) PO SCH (09:38)
[2020-10-24] MEDS: PANTOPRAZOLE 40 MG TABLET PO SCH (09:38)
[2020-10-24] MEDS: POTASSIUM CHLORIDE ORAL LIQUID 20 MEQ/15 ML PO SCH (09:38)
[2020-10-24] MEDS: ESCITALOPRAM OXALATE 10 MG TABLET PO SCH (09:38)
[2020-10-24] MEDS: AMMONIUM LACTATE 12% LOTION 225 GM BOTTLE TP SCH ×2 (09:39→22:51)
[2020-10-24] MEDS ORDERED: KCL 10 MEQ IVPB 10 MEQ/100 ML INFUS.BAG IVPB SCH (11:45)
[2020-10-24] MEDS: SENNOSIDES 8.6MG TABLET (FP) PO SCH (17:34)
[2020-10-24] MEDS: AMINO ACIDS 4.25%/D5W 1,000 ML IV SCH (17:59)
[2020-10-24] MEDS: MIRTAZAPINE 15 MG TABLET (FP) PO SCH (22:51)
[2020-10-25] MEDS: guaiFENesin 200 MG/10 ML 10 ML UNIT-DOSE CUPS PO SCH ×3 (06:49→22:31)
[2020-10-25] MEDS: ALBUTEROL SO4 0.083% IH SOL 2.5 MG/3 ML VIAL.NEB. NEB SCH ×3 (07:35→20:49)
[2020-10-25] MEDS ORDERED: PT OWN MED DRAWER 7, Y5N ONE ×2 (09:28→22:11)
[2020-10-25] MEDS: PANTOPRAZOLE 40 MG TABLET PO SCH (09:39)
[2020-10-25] MEDS: lamoTRIgine 100 MG TABLET PO SCH ×2 (09:39→22:31)
[2020-10-25] MEDS: MULTIVITAMINS (DAILY MVI) TABLET (FP) PO SCH (09:39)
[2020-10-25] MEDS: metoPROLOL SUCCINATE 25 MG TAB.SR.24H (FP) PO SCH (09:39)
[2020-10-25] MEDS: ASCORBIC ACID 500 MG TABLET (FP) PO SCH (09:39)
[2020-10-25] MEDS: POTASSIUM CHLORIDE ORAL LIQUID 20 MEQ/15 ML PO SCH (09:39)
[2020-10-25] MEDS: ENOXAPARIN NA (PORCINE) 40 MG/0.4 ML DISP.SYRIN SQ SCH ×2 (09:39→22:31)
[2020-10-25] MEDS: AMMONIUM LACTATE 12% LOTION 225 GM BOTTLE TP SCH ×2 (09:39→22:32)
[2020-10-25] MEDS ORDERED: FUROSEMIDE 40 MG/4 ML INJECTABLE VIAL IVPUSH ONE (15:27)
[2020-10-25] MEDS: AMINO ACIDS 4.25%/D5W 1,000 ML IV SCH (16:48)
[2020-10-25 17:00] LABS: BLOOD UREA NITROGEN 22.1 mg/dL (7-18)
[2020-10-25 17:04] LABS: CREATININE 1.2 mg/dL (0.55-1.3)
[2020-10-25] MEDS: SENNOSIDES 8.6MG TABLET (FP) PO SCH (18:08)
[2020-10-25] MEDS: MIRTAZAPINE 15 MG TABLET (FP) PO SCH (22:31)
[2020-10-26] MEDS ORDERED: PT OWN MED DRAWER 7, Y5N ONE ×3 (06:32→22:27)
[2020-10-26] MEDS: guaiFENesin 200 MG/10 ML 10 ML UNIT-DOSE CUPS PO SCH ×4 (06:44→22:26)
[2020-10-26] MEDS: ALBUTEROL SO4 0.083% IH SOL 2.5 MG/3 ML VIAL.NEB. NEB SCH ×3 (07:30→20:44)
[2020-10-26 08:27] LABS: CALCIUM 7.4 mg/dL (8.5-10.1)
[2020-10-26 08:28] LABS: BLOOD UREA NITROGEN 24.3 mg/dL (7-18)
[2020-10-26 08:31] LABS: CREATININE 1.1 mg/dL (0.55-1.3)
[2020-10-26] MEDS: ENOXAPARIN NA (PORCINE) 40 MG/0.4 ML DISP.SYRIN SQ SCH ×2 (09:37→22:25)
[2020-10-26] MEDS: POTASSIUM CHLORIDE ORAL LIQUID 20 MEQ/15 ML PO SCH (09:37)
[2020-10-26] MEDS: MULTIVITAMINS (DAILY MVI) TABLET (FP) PO SCH (09:37)
[2020-10-26] MEDS: lamoTRIgine 100 MG TABLET PO SCH ×2 (09:37→22:28)
[2020-10-26] MEDS: PANTOPRAZOLE 40 MG TABLET PO SCH (09:37)
[2020-10-26] MEDS: FUROSEMIDE 40 MG/4 ML INJECTABLE VIAL IVPUSH SCH (09:37)
[2020-10-26] MEDS: metoPROLOL SUCCINATE 25 MG TAB.SR.24H (FP) PO SCH (09:38)
[2020-10-26] MEDS: BACITRACIN 15 GM TUBE TOPICAL OINTMENT TP SCH (09:38)
[2020-10-26] MEDS: AMMONIUM LACTATE 12% LOTION 225 GM BOTTLE TP SCH ×2 (09:38→22:28)
[2020-10-26] MEDS: KCL 10 MEQ IVPB 10 MEQ/100 ML INFUS.BAG IVPB SCH ×2 (12:39→13:25)
[2020-10-26] MEDS: AMINO ACIDS 4.25%/D5W 1,000 ML IV SCH (17:13)
[2020-10-26] MEDS: SENNOSIDES 8.6MG TABLET (FP) PO SCH (17:13)
[2020-10-26] MEDS: MIRTAZAPINE 15 MG TABLET (FP) PO SCH (22:26)
[2020-10-27] MEDS: guaiFENesin 200 MG/10 ML 10 ML UNIT-DOSE CUPS PO SCH ×2 (06:18→15:12)
[2020-10-27 08:21] LABS: CALCIUM 7.4 mg/dL (8.5-10.1)
[2020-10-27 08:22] LABS: ALBUMIN 2.1 g/dl (3.4-5.0); BLOOD UREA NITROGEN 24.2 mg/dL (7-18); MAGNESIUM 1.8 mg/dL (1.8-2.4)
[2020-10-27 08:26] LABS: BILIRUBIN,TOTAL 0.6 mg/dL (0.2-1); TOT PROT 5.2 g/dl (6.4-8.2)
[2020-10-27] MEDS: ALBUTEROL SO4 0.083% IH SOL 2.5 MG/3 ML VIAL.NEB. NEB SCH ×3 (08:30→19:57)
[2020-10-27] MEDS: FUROSEMIDE 40 MG/4 ML INJECTABLE VIAL IVPUSH SCH (10:06)
[2020-10-27] MEDS: ENOXAPARIN NA (PORCINE) 40 MG/0.4 ML DISP.SYRIN SQ SCH ×2 (10:06→22:24)
[2020-10-27] MEDS: MULTIVITAMINS (DAILY MVI) TABLET (FP) PO SCH (10:07)
[2020-10-27] MEDS: POTASSIUM CHLORIDE ORAL LIQUID 20 MEQ/15 ML PO SCH (10:07)
[2020-10-27] MEDS: ASCORBIC ACID 500 MG TABLET (FP) PO SCH (10:07)
[2020-10-27] MEDS: BACITRACIN 15 GM TUBE TOPICAL OINTMENT TP SCH (10:07)
[2020-10-27] MEDS: lamoTRIgine 100 MG TABLET PO SCH ×2 (10:07→22:23)
[2020-10-27] MEDS: metoPROLOL SUCCINATE 25 MG TAB.SR.24H (FP) PO SCH (10:07)
[2020-10-27] MEDS: PANTOPRAZOLE 40 MG TABLET PO SCH (10:07)
[2020-10-27] MEDS: AMMONIUM LACTATE 12% LOTION 225 GM BOTTLE TP SCH ×2 (10:09→22:24)
[2020-10-27] MEDS ORDERED: POTASSIUM CHLORIDE TABS 20 MEQ TABLET.ER (FP) PO ONE (15:57)
[2020-10-27] MEDS: SENNOSIDES 8.6MG TABLET (FP) PO SCH (17:21)
[2020-10-27] MEDS: AMINO ACIDS 4.25%/D5W 1,000 ML IV SCH (17:43)
[2020-10-27] MEDS: MIRTAZAPINE 15 MG TABLET (FP) PO SCH (22:22)
[2020-10-27] MEDS: guaiFENesin/D-M SUGAR-FREE/ACLHOL-FREE 118 ML BOTTLE PO SCH (22:23)
[2020-10-28 08:00] LABS: HEMATOCRIT 25.6 % (35.4-49); HEMOGLOBIN 8.2 GM/dL (11.7-16.9); MCH 27.5 pg (25.7-33.7); MCHC 32.1 g/dl (32.0-35.9); MEAN CELL VOLUME 85.6 fl (80-96); MEAN PLT VOLUME 11.3 fl (7.5-11.1); PLATELET COUNT 56 K/MM3 (134-434); RBC 2.99 M/mm3 (4.00-5.60); RDW 25.5 % (11.9-15.9)
[2020-10-28 08:25] LABS: BLOOD UREA NITROGEN 25.8 mg/dL (7-18); CALCIUM 7.3 mg/dL (8.5-10.1)
[2020-10-28] MEDS: ALBUTEROL SO4 0.083% IH SOL 2.5 MG/3 ML VIAL.NEB. NEB SCH ×3 (08:45→20:18)
[2020-10-28] MEDS: lamoTRIgine 100 MG TABLET PO SCH ×2 (11:47→22:33)
[2020-10-28] MEDS: PANTOPRAZOLE 40 MG TABLET PO SCH (11:47)
[2020-10-28] MEDS: ENOXAPARIN NA (PORCINE) 40 MG/0.4 ML DISP.SYRIN SQ SCH ×2 (11:47→21:57)
[2020-10-28] MEDS: MULTIVITAMINS (DAILY MVI) TABLET (FP) PO SCH (11:48)
[2020-10-28] MEDS: AMMONIUM LACTATE 12% LOTION 225 GM BOTTLE TP SCH ×2 (11:48→22:01)
[2020-10-28] MEDS: guaiFENesin/D-M SUGAR-FREE/ACLHOL-FREE 118 ML BOTTLE PO SCH ×2 (11:48→21:56)
[2020-10-28] MEDS: BACITRACIN 15 GM TUBE TOPICAL OINTMENT TP SCH (11:48)
[2020-10-28] MEDS: metoPROLOL SUCCINATE 25 MG TAB.SR.24H (FP) PO SCH ×2 (11:48→12:30)
[2020-10-28] MEDS: SPIRONOLACTONE 25 MG TABLET PO SCH ×2 (11:48→12:29)
[2020-10-28] MEDS: POTASSIUM CHLORIDE ORAL LIQUID 20 MEQ/15 ML PO SCH (11:49)
[2020-10-28] MEDS: FUROSEMIDE 40 MG/4 ML INJECTABLE VIAL IVPUSH SCH ×2 (12:29→13:59)
[2020-10-28] MEDS: AMINO ACIDS 4.25%/D5W 1,000 ML IV SCH ×2 (13:59→21:55)
[2020-10-28] MEDS ORDERED: SCOPOLAMINE HYDROBROMIDE 1 PATCH PATCH.TD72 TD SCH (14:30)
[2020-10-28] MEDS: SENNOSIDES 8.6MG TABLET (FP) PO SCH (18:10)
[2020-10-28] MEDS: AMINO ACIDS/PROTEIN HYDROLYS 30 ML LIQUID.PKT PO SCH (18:10)
[2020-10-28] MEDS ORDERED: PT OWN MED DRAWER 7, Y5N ONE (21:49)
[2020-10-28] MEDS: MIRTAZAPINE 15 MG TABLET (FP) PO SCH (21:56)
[2020-10-29 07:33] LABS: HEMATOCRIT 23.9 % (35.4-49); HEMOGLOBIN 7.7 GM/dL (11.7-16.9); MCH 27.7 pg (25.7-33.7); MCHC 32.3 g/dl (32.0-35.9); MEAN CELL VOLUME 85.9 fl (80-96); MEAN PLT VOLUME 10.5 fl (7.5-11.1); PLATELET COUNT 56 K/MM3 (134-434); RBC 2.78 M/mm3 (4.00-5.60); RDW 25.2 % (11.9-15.9); WHITE BLOOD COUNT 6.3 K/mm3 (4.0-10.0)
[2020-10-29 07:36] LABS: CALCIUM 7.1 mg/dL (8.5-10.1)
[2020-10-29 07:37] LABS: BLOOD UREA NITROGEN 27.9 mg/dL (7-18)
[2020-10-29 07:40] LABS: CREATININE 1.1 mg/dL (0.55-1.3)
[2020-10-29] MEDS: ALBUTEROL SO4 0.083% IH SOL 2.5 MG/3 ML VIAL.NEB. NEB SCH ×3 (08:17→21:05)
[2020-10-29] MEDS ORDERED: PT OWN MED DRAWER 7, Y5N ONE ×2 (13:05→20:32)
[2020-10-29] MEDS: ENOXAPARIN NA (PORCINE) 40 MG/0.4 ML DISP.SYRIN SQ SCH ×2 (13:30→22:56)
[2020-10-29] MEDS: POTASSIUM CHLORIDE ORAL LIQUID 20 MEQ/15 ML PO SCH (13:30)
[2020-10-29] MEDS: FUROSEMIDE 40 MG/4 ML INJECTABLE VIAL IVPUSH SCH (13:30)
[2020-10-29] MEDS: AMINO ACIDS/PROTEIN HYDROLYS 30 ML LIQUID.PKT PO SCH ×2 (13:30→19:06)
[2020-10-29] MEDS: guaiFENesin/D-M SUGAR-FREE/ACLHOL-FREE 118 ML BOTTLE PO SCH ×2 (13:31→22:55)
[2020-10-29] MEDS: lamoTRIgine 100 MG TABLET PO SCH ×2 (13:31→22:55)
[2020-10-29] MEDS: SPIRONOLACTONE 25 MG TABLET PO SCH (13:31)
[2020-10-29] MEDS: metoPROLOL SUCCINATE 25 MG TAB.SR.24H (FP) PO SCH (13:31)
[2020-10-29] MEDS: BACITRACIN 15 GM TUBE TOPICAL OINTMENT TP SCH (13:31)
[2020-10-29] MEDS: AMMONIUM LACTATE 12% LOTION 225 GM BOTTLE TP SCH ×2 (13:31→22:55)
[2020-10-29] MEDS: MULTIVITAMINS (DAILY MVI) TABLET (FP) PO SCH (13:31)
[2020-10-29] MEDS: PANTOPRAZOLE 40 MG TABLET PO SCH (13:31)
[2020-10-29] MEDS: SENNOSIDES 8.6MG TABLET (FP) PO SCH (19:07)
[2020-10-29] MEDS: MIRTAZAPINE 15 MG TABLET (FP) PO SCH (22:56)
[2020-10-30] MEDS: ALBUTEROL SO4 0.083% IH SOL 2.5 MG/3 ML VIAL.NEB. NEB SCH ×3 (07:39→19:36)
[2020-10-30 08:23] LABS: CALCIUM 7.2 mg/dL (8.5-10.1)
[2020-10-30 08:24] LABS: BLOOD UREA NITROGEN 26.8 mg/dL (7-18)
[2020-10-30 08:27] LABS: CREATININE 0.9 mg/dL (0.55-1.3)
[2020-10-30] MEDS: AMINO ACIDS/PROTEIN HYDROLYS 30 ML LIQUID.PKT PO SCH ×2 (09:07→16:51)
[2020-10-30] MEDS: BACITRACIN 15 GM TUBE TOPICAL OINTMENT TP SCH (09:08)
[2020-10-30] MEDS: AMMONIUM LACTATE 12% LOTION 225 GM BOTTLE TP SCH ×2 (09:08→21:34)
[2020-10-30] MEDS: ENOXAPARIN NA (PORCINE) 40 MG/0.4 ML DISP.SYRIN SQ SCH ×2 (09:10→21:31)
[2020-10-30] MEDS: POTASSIUM CHLORIDE ORAL LIQUID 20 MEQ/15 ML PO SCH (09:10)
[2020-10-30] MEDS: FUROSEMIDE 40 MG/4 ML INJECTABLE VIAL IVPUSH SCH (09:11)
[2020-10-30] MEDS: guaiFENesin/D-M SUGAR-FREE/ACLHOL-FREE 118 ML BOTTLE PO SCH (09:11)
[2020-10-30] MEDS: lamoTRIgine 100 MG TABLET PO SCH ×2 (09:15→21:31)
[2020-10-30] MEDS: PANTOPRAZOLE 40 MG TABLET PO SCH (09:15)
[2020-10-30] MEDS: metoPROLOL SUCCINATE 25 MG TAB.SR.24H (FP) PO SCH (09:15)
[2020-10-30] MEDS: ASCORBIC ACID 500 MG TABLET (FP) PO SCH (09:15)
[2020-10-30] MEDS: SPIRONOLACTONE 25 MG TABLET PO SCH (09:15)
[2020-10-30] MEDS: MULTIVITAMINS (DAILY MVI) TABLET (FP) PO SCH (09:15)
[2020-10-30 09:27] LABS: HEMATOCRIT 25.4 % (35.4-49); HEMOGLOBIN 8.2 GM/dL (11.7-16.9); MCH 27.4 pg (25.7-33.7); MCHC 32.2 g/dl (32.0-35.9); MEAN CELL VOLUME 85.1 fl (80-96); MEAN PLT VOLUME 10.6 fl (7.5-11.1); PLATELET COUNT 62 K/MM3 (134-434); RBC 2.98 M/mm3 (4.00-5.60); RDW 25.2 % (11.9-15.9); WHITE BLOOD COUNT 7.7 K/mm3 (4.0-10.0)
[2020-10-30] MEDS: AMINO ACIDS 4.25%/D5W 1,000 ML IV SCH (15:00)
[2020-10-30] MEDS ORDERED: guaiFENesin/CODEINE 5 ML UNIT-DOSE CUPS PO PRN (15:11)
[2020-10-30] MEDS: MIRTAZAPINE 15 MG TABLET (FP) PO SCH (21:31)
[2020-10-31] MEDS: ALBUTEROL SO4 0.083% IH SOL 2.5 MG/3 ML VIAL.NEB. NEB SCH (07:47)
[2020-10-31] MEDS: AMINO ACIDS/PROTEIN HYDROLYS 30 ML LIQUID.PKT PO SCH (08:00)
[2020-10-31 08:08] LABS: SARS-CoV-2 NAA Not Detected (Not Detected)
[2020-10-31 08:43] VITALS: BP 111/68; PULSE 84; TEMP 98
[2020-10-31] MEDS: ENOXAPARIN NA (PORCINE) 40 MG/0.4 ML DISP.SYRIN SQ SCH (09:55)
[2020-10-31] MEDS: SPIRONOLACTONE 25 MG TABLET PO SCH (09:55)
[2020-10-31] MEDS: POTASSIUM CHLORIDE ORAL LIQUID 20 MEQ/15 ML PO SCH (09:55)
[2020-10-31] MEDS: metoPROLOL SUCCINATE 25 MG TAB.SR.24H (FP) PO SCH (09:56)
[2020-10-31] MEDS: PANTOPRAZOLE 40 MG TABLET PO SCH (09:57)
[2020-10-31] MEDS: AMMONIUM LACTATE 12% LOTION 225 GM BOTTLE TP SCH (09:57)
[2020-10-31] MEDS: lamoTRIgine 100 MG TABLET PO SCH (09:57)
[2020-10-31] MEDS: BACITRACIN 15 GM TUBE TOPICAL OINTMENT TP SCH (09:58)
== END 2020-10-31 15:21 | disposition hospice, inpatient (51) | DRG 686 ==
LOC: JER 13:55 → JERBED 17:50 → J4W 10-13 00:52 → J8W 10-20 12:15 → J4W 10-20 12:22
PROVIDERS: ADMIT Internal Medicine; ATTEND Internal Medicine
PROC: 0T2BX0Z Change Drainage Device in Bladder, External Approach (ICD-10-PCS; principal; 2020-10-14)
DX: C64.1 Malignant neoplasm of right kidney, except renal pelvis (principal); I82.220 Acute embolism and thrombosis of inferior vena cava; J18.9 Pneumonia, unspecified organism; C91.90 Lymphoid leukemia, unspecified not having achieved remission; I82.409 Acute embolism and thrombosis of unspecified deep veins of unspecified lower extremity; N39.0 Urinary tract infection, site not specified; J90 Pleural effusion, not elsewhere classified; R64 Cachexia; E46 Unspecified protein-calorie malnutrition; I69.354 Hemiplegia and hemiparesis following cerebral infarction affecting left non-dominant side; I25.10 Atherosclerotic heart disease of native coronary artery without angina pectoris; I10 Essential (primary) hypertension; E78.5 Hyperlipidemia, unspecified; K21.9 Gastro-esophageal reflux disease without esophagitis; Z85.46 Personal history of malignant neoplasm of prostate; Z93.59 Other cystostomy status; R31.0 Gross hematuria; R62.7 Adult failure to thrive; R63.0 Anorexia; Z68.23 Body mass index [BMI] 23.0-23.9, adult; D64.9 Anemia, unspecified; D69.6 Thrombocytopenia, unspecified; F32.9 Major depressive disorder, single episode, unspecified; E87.70 Fluid overload, unspecified; N31.9 Neuromuscular dysfunction of bladder, unspecified
CPT/HCPCS: 36415; 70553-TC; 71045-TC-FY; 71250-TC; 74177-TC; 74230-TC-FY; 78306-TC; 80048; 80053; 81003; 82272; 82533; 82550; 82962; 83036; 83615; 83735; 83880; 84443; 84484; 85025; 85027; 85384; 85610; 85730; 86850; 86900; 86901; 87077; 87086; 87186; 92611-GN; 93005; 93010; 93306-TC; 93970-TC; 93975; 94640; 97116-GP; 97162-GP; 99285-25; A9503; A9579; C9803; E0186; Q9967; U0003; U0005